=== PATIENT | female | born 1940 | race Caucasian/White ===

== ENCOUNTER 2022-04-13 14:07 | Emergency (ER) | payer MEDICARE, SELFPAY ==
--- NOTE | 2022-04-13 14:08 | ED.SKABFB ---
HPI - Skin/Abscess/Foreign Bdy General Chief complaint: Skin/Abscess/Foreign Body Stated complaint: tick bite rt arm Time Seen by Provider: 04/13/22 14:08 Source: patient Mode of arrival: ambulatory Limitations: no limitations History of Present Illness HPI narrative: Maryan is an 81-year-old female patient presenting to clinic today with complaints of a possible tick in her right upper arm. She reports she was out raking leaves yesterday and thinks she has been by tech. She got her tweezers out and tried to remove the tick on her own and was unsuccessful. She has redness and swelling around the tick bite. Related Data Home Medications Medication Instructions Recorded Confirmed amlodipine 5 mg tablet 5 mg PO DAILY 04/13/22 04/13/22 atenolol 25 mg tablet 25 mg PO DAILY 04/13/22 04/13/22 atorvastatin 40 mg tablet 40 mg PO DAILY 04/13/22 04/13/22 levothyroxine 50 mcg tablet 50 mcg PO DAILY 04/13/22 04/13/22 lisinopril 20 1 tablet PO DAILY 04/13/22 04/13/22 mg-hydrochlorothiazide 12.5 mg tablet Allergies Allergy/AdvReac Type Severity Reaction Status Date / Time No Known Allergies Allergy Verified 04/13/22 14:19 Review of Systems Review of Systems: Pertinent positives per HPI. Patient denies any fever, chills, rash, headache, visual changes, dizziness, cough, runny nose, sore throat, shortness of breath, chest pain, palpitations, nausea, vomiting, diarrhea, constipation, abdominal pain, or any urinary issues. PMFSH Comments At the time of my signature, I reviewed and agree with the nursing past medical, surgical, social, and family history. There is no relevant family history pertinent to the patient complaint. Exam Narrative: General: Well-developed, well nourished, in no apparent distress Head: Normocephalic, atraumatic. Cardio: Regular rate and rhythm, s1 and s2 normal, no murmur appreciated. Resp: Clear to auscultation bilaterally, no rhonchi, rales, wheezing or rubs. Integumentary: [place], warm, and dry, intact without lesion, red rash to the size of a half dollar with tick reminents in its in the center. Mild ear induration and erythema without discharge or abscess Course Course Emergency Course: Portions of this record may have been created with voice recognition software. Level of Care: Express Care Visit Vital Signs Vital signs: Vital Signs Temperature 36.6 C 04/13/22 14:17 Pulse Rate 68 04/13/22 14:17 Respiratory Rate 16 04/13/22 14:17 Blood Pressure 166/59 H 04/13/22 14:17 Pulse Oximetry 99 04/13/22 14:17 Temperature 36.6 C 04/13/22 14:17 Pulse Rate 68 04/13/22 14:17 Respiratory Rate 16 04/13/22 14:17 Blood Pressure 166/59 H 04/13/22 14:17 Pulse Oximetry 99 04/13/22 14:17 Vital signs reviewed Procedures Foreign Body Removal Foreign Body #1: Foreign Body Removal Date: 04/13/22 Foreign Body Removal Time: 14:25 Site: right Description of foreign body: other (Tick remnants) Technique: other (18 gauge needle) Confirmed by:: direct visualization Complications: none Post-procedure exam: awake, alert, normal BP, normal HR and normal O2 sat Neurovascular: no change from pre-procedure Foreign Body Removal Narrative: Verbal consent obtained for removal of tick remnants in the right upper arm. Risk and benefits explained to patient she voiced understanding of discharge instructions. The area was cleansed with alcohol and a 25 gauge needle was used to instill 1 mL of lidocaine without epi into the center of the wound/area of tick bite/attachment. Anesthesia was appropriate. An 18 gauge needle was then used to successfully remove the mandible of the tip from the right upper arm. Patient tolerated procedure very well MDM - Skin/Abscess/Foreign Bdy MDM Narrative Medical decision making narrative: At the time of visit patient is resting comfortably on exam table. Mandible of tick was removed from he
[2022-04-13 14:17] VITALS: BP 166/59; PULSE 68; RESP 16; TEMP 36.6; O2SAT 99
== END 2022-04-13 14:43 | disposition home or self-care (01) ==
PROVIDERS: Emergency Provider Nurse Practitioner Family; PCP Internal Medicine
DX: S40.861A Insect bite (nonvenomous) of right upper arm, initial encounter (principal); W57.XXXA Bitten or stung by nonvenomous insect and other nonvenomous arthropods, initial encounter
CPT/HCPCS: 99203; G0463

== ENCOUNTER 2024-01-19 20:08 | Inpatient (IN) | payer MEDICARE, SELFPAY ==
--- NOTE | ~2024-01-19 | US_ITS ---
EXAMINATION: US venous doppler [facility] DATE: 01/27/2024 11:55 INDICATION: Right lower limb pain, swelling and erythema TECHNIQUE: Grayscale ultrasound images without and with compression and Doppler ultrasound images of the bilateral lower extremity veins were obtained. COMPARISON: None. FINDINGS: The visualized portions of right common femoral vein, profunda (deep) femoral vein, femoral vein, pop liteal vein, posterior tibial veins, peroneal veins, gastrocnemius vein and greater saphenous vein ou tflow are patent. The visualized portions of left common femoral vein, profunda femoral vein, femoral vein, popliteal v ein, posterior tibial veins, peroneal veins, gastrocnemius vein and greater saphenous vein outflow ar e patent. IMPRESSION: 1. No deep venous thrombosis in either lower limb. Reviewed, dictated and finalized at location A.
--- NOTE | ~2024-01-19 | CT_ITS ---
EXAMINATION: CTA abdomen pelvis DATE: 01/28/2024 12:04 INDICATION: Femoral artery stenosis TECHNIQUE: Computed tomographic angiography (CTA) of the abdomen and pelvis was performed with 100 mL Omnipaque-350 intravenous contrast. Additional 3D reconstructions utilizing rotating maximum intensi ty projection (MIP) were performed. Automated exposure control and iterative reconstruction technique were employed. The dose-length product was 666.11 mGy-cm. COMPARISON: CT abdomen pelvis dated 06/14/2017 FINDINGS: Mild emphysema minimal atelectasis at the bilateral lower lungs. Heart size is normal. No pericardial or pleural effusion. Multiple cysts in the right hepatic lobe the largest measuring 7.4 cm. Gradient of dependently layering sludge in the normal gallbladder. Spleen, left kidney and bilateral adrenal glands are normal. 2.0 cm right renal cyst. There is a new simple appearing 2.4 cm cyst arising from the body the pancreas without evident solid soft tissue component. 1.6 cm right ovarian follicle. The left ovary, uterus and bladder are normal. There are few scattered colonic diverticula without adjacent from trace stranding to suggest diverticulitis. Small bowel and appendix are normal. No free intraperitoneal gas or fluid. No pathologically enlarged abdominal or p elvic lymphadenopathy. There is calcified atherosclerosis without hemodynamically significant stenosi s of the normal caliber aorta and many of the other arteries including the common, deep and superfici al femoral arteries at the bilateral proximal thighs. Severe lumbar and lower thoracic spondylosis. IMPRESSION: 1. Mild scattered nonhemodynamically significant atherosclerotic plaque in the normal caliber abdomin al aorta and several remaining arteries in the abdomen, pelvis and proximal thighs. 2. 2.4 cm cystic lesion at the body the pancreas. The differential diagnosis includes pseudocyst, int raductal papillary mucinous neoplasm (IPMN), mucinous cystic neoplasm (MCN), and the less common sero us cystadenoma and neuroendocrine tumor. Correlate for history of pancreatitis. Recommend six-month f ollow-up pre and postcontrast MRI. Reviewed, dictated and finalized at location A. IMPRESSION: 1. Mild scattered nonhemodynamically significant atherosclerotic plaque in the normal caliber abdominal aorta and several remaining arteries in the abdomen, p samuel and proximal thighs. 2. 2.4 cm cystic lesion at the body the pancreas. The differential diagnosis in cludes pseudocyst, intraductal papillary mucinous neoplasm (IPMN), mucinous cys tic neoplasm (MCN), and the less common serous cystadenoma and neuroendocrine t umor. Correlate for history of pancreatitis. Recommend six-month follow-up pre and postcontrast MRI.
--- NOTE | ~2024-01-19 | CT_ITS ---
Procedure: CT LE RT w con Ordering provider: Michaela Moreno NP History: . Redness and swelling . Comparison: 8 Technique: Thin slice axial CT of the No IV contrast was given. Sagittal and coronal reformatted imag es were also obtained and reviewed. Findings: BONES: No definite abnormality. 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 SOFT TISSUES: Narrowing of 75-85 % is seen in the distal SFA. Atherosclerotic changes are also noted. Edema is seen in the subcutaneous tissues below the knee. Collateral vessels are seen.. 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 Further evaluation advised. Edema in the subcutaneous tissues below the knee more prominent on the dorsum of the foot. Reviewed, dictated and finalized at location A. 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 Further evaluation advised. Edema in the subcutaneous tissues below the knee more prominent on the dorsum o f the foot.
[2024-01-19 20:09] VITALS: BP 131/47; PULSE 79; RESP 17; TEMP 36.8; O2SAT 99
--- NOTE | 2024-01-19 22:28 | ED.LOWEXIN ---
HPI - Extremity Injury (Lower) General Chief Complaint: Extremity Injury, Lower <PACO Rizo Last Filed: 01/22/24 18:28> Stated Complaint: Right leg pain <PACO Rizo Last Filed: 01/22/24 18:28> Time Seen by Provider: 01/19/24 22:15 <PACO Rizo Last Filed: 01/22/24 18:28> Source: patient <PACO Rizo Last Filed: 01/22/24 18:28> Mode of arrival: ambulatory <PACO Rizo Last Filed: 01/22/24 18:28> Limitations: no limitations <PACO Rizo Last Filed: 01/22/24 18:28> History of Present Illness HPI Narrative: This is a 83 year old female that presents to the ER for Right lower extremity redness and swelling. Reports she sustained a scratch from a dog leash on Monday. Two days ago the area started to become red and swollen. She has had some drainage from the area. The redness has spread down to her foot and up to her thigh. She went to the urgent care and was prompted to be seen in the ER. Denies fevers. <PACO Rizo Last Filed: 01/22/24 18:28> Related Data Home Medications: Home Medications Medication Instructions Recorded Confirmed amlodipine 5 mg tablet 5 mg PO HS 04/13/22 01/20/24 atenolol 25 mg tablet 25 mg PO HS 04/13/22 01/20/24 atorvastatin 40 mg tablet 40 mg PO HS 04/13/22 01/20/24 levothyroxine 50 mcg tablet 50 mcg PO DAILY 04/13/22 01/20/24 lisinopril 20 1 tablet PO DAILY 04/13/22 01/20/24 mg-hydrochlorothiazide 12.5 mg tablet <PACO Rizo Last Filed: 01/22/24 18:28> Allergies/Adverse Reactions: Allergies Allergy/AdvReac Type Severity Reaction Status Date / Time No Known Allergies Allergy Verified 01/19/24 20:16 <PACO Rizo Last Filed: 01/22/24 18:28> Review of Systems Review of Systems: CONSTITUTIONAL: Denies fever SKIN: Reports redness and swelling <Heidi Nieves PA-C - Last Filed: 01/22/24 18:28> All systems reviewed & are unremarkable except as noted in HPI and below <Heidi Nieves PA-C - Last Filed: 01/22/24 18:28> PMFSH Past Medical History Medical History: Medical History (Updated 01/22/24 @ 14:15 by MAGALYS Frnacois) History of hyperlipidemia History of hypertension History of hypothyroidism <Heidi Nieves PA-C - Last Filed: 01/22/24 18:28> Social History Social History: Social History (Updated 01/19/24 @ 22:33 by Heidi Nieves PA-C) Smoking status: Former smoker Alcohol intake: current Drinks per week: 1 Substance use: never Do You Feel Safe in your Home?: Yes Lack of Transportation: YES Lack of Food: Never True Current Housing: I Have Housing Concerned About Future Housing: No Difficulty Paying Gas/Electric Bills: No Difficulty Paying for Meds: No Currently Unemployed: No Education: Master's Degree or Higher Difficulty w/ Childcare or Family Care: No Spiritual care concerns: No <Heidi Nieves PA-C - Last Filed: 01/22/24 18:28> Exam Narrative: GENERAL: Well-appearing, well-nourished, and in no acute distress. HEAD: Normocephalic, atraumatic. EYES: EOMI. CHEST: No respiratory distress. HEART: Regular rate EXTREMITIES: Normal range of motion. Edema and erythema extending from a small superficial skin tear to the right inner lower leg down into the foot and with lymphangitic streaking up to the proximal thigh. Normal DP pulse SKIN: Warm, dry, no rash. NEURO: No focal deficits. Alert and oriented x3. PSYCH: Normal mood and affect <Heidi Nieves PA-C - Last Filed: 01/22/24 18:28> Course Course Emergency Course: Patient updated on workup and need for admission <Heidi Nieves PA-C - Last Filed: 01/22/24 18:28> TAX COLLECTOR/PA Physician Supervision I agree with midlevel documentation; I performed the medical decision making component of this evaluation. Patient here with spreading cellulitis; BP has been soft, but fluid
[2024-01-19 23:34] LABS: Basophils Absolute Auto 0.1 K/mm3 (0.0-0.1); Basophils Percent Auto 0.4 % (0.2-1.2); Eosinophils Percent Auto 0.2 % (0-4.4); Hematocrit 34.4 % (37.0-47.0); Immature Granulocyte Absolute 0.05 K/mm3 (0.00-0.031); Immature Granulocyte Percent A 0.4 % (0-0.5); Lymphocytes Absolute Auto 0.92 K/mm3 (0.9-3.2); Lymphocytes Percent Auto 8.2 % (18.3-44.2); Mean Corpuscular HGB Conc 34.9 g/dl (32-36); Mean Corpuscular Hemoglobin 32.3 pg (26-34); Mean Corpuscular Volume 92.7 fl (80-100); Mean Platelet Volume 9.8 fl (7.4-10.4); Monocytes Percent Auto 8.5 % (2.6-8.5); Neutrophils Absolute Auto 9.2 K/mm3 (1.3-6.7); Neutrophils Percent Auto 82.3 % (45.5-73.1); Platelet Count Result 234 k/mm3 (150-375); Red Blood Count 3.71 M/mm3 (4.2-5.4); Red Cell Distribution Width 13.1 % (11.5-14.5); White Blood Count 11.2 K/mm3 (4.5-10.0)
[2024-01-19 23:49] LABS: Lactic Acid Reflex 1.1 mmol/L (0.7-2.0)
[2024-01-20] VITALS (14 sets, daily range): BP systolic 103–144; BP diastolic 41–94; PULSE 54–86; RESP 11–18; TEMP 36.5–38.9; O2SAT 95–100; BMI 33.2
[2024-01-20 00:09] LABS: Anion Gap 10 mmol/L (4-12); Blood Urea Nitrogen 29 mg/dL (7-17); CRP 19.4 mg/dL (<1.0); Calcium 8.7 mg/dL (8.4-10.2); Carbon Dioxide 28 mmol/L (22-30); Chloride 92 mmol/L (98-107); Estimated CRCL calculation 24 ml/min; Estimated Glomerular Filt Rate 36; Glucose 105 mg/dL (65-110); Potassium 2.9 mmol/L (3.4-5.0); Sodium 130 mmol/L (137-145)
[2024-01-20] MEDS: ACETAMINOPHEN 500 MG TABLET 1000 MG PO (00:16)
[2024-01-20] MEDS: VANCOMYCIN 1,500 MG/NS 500 ML 1,500 MG/500 ML BAG 250 MG IVPB (01:08)
[2024-01-20 01:09] LABS: Erythrocyte Sedimentation Rate 85 mm/hr (0-20)
[2024-01-20] MEDS: POTASSIUM CHLORIDE 20 MEQ ER TABLET 40 MEQ PO ×4 (01:13→17:01)
[2024-01-20] MEDS: SODIUM CHLORIDE 0.9% IV 1,000 ML 999 ML IV CONT ×2 (01:14→02:56)
[2024-01-20] MEDS: CEFEPIME 2 GM/NS 50 ML 2 GM/50 ML BAG IVPB ×3 (03:36→20:47)
[2024-01-20] MEDS: LACTATED RINGERS 1,000 ML 150 ML IV CONT (04:20)
--- NOTE | 2024-01-20 06:57 | ADMGEN ---
This patient, Tequila Rubio, was admitted to [facility] Surg Room 314-02. Patient/family oriented to hospital policies and general routines including ID bracelet, bed and alarms, visiting hours, pain management, procedures, bathroom and other care routines, personal items, smoking policy, room service/diet, and visiting hours. Information on how to activate the Rapid Response Team has been discussed. Patient/Family are encouraged to report perceived risks to care and to ask questions if they do not understand what they are told or what they should do.
[2024-01-20 09:02] LABS: Basophils Percent Auto 0.2 % (0.2-1.2); Eosinophils Percent Auto 0.3 % (0-4.4); Hematocrit 33.1 % (37.0-47.0); Hemoglobin 11.3 g/dL (12.0-15.0); Immature Granulocyte Absolute 0.03 K/mm3 (0.00-0.031); Immature Granulocyte Percent A 0.3 % (0-0.5); Lymphocytes Absolute Auto 0.64 K/mm3 (0.9-3.2); Mean Corpuscular HGB Conc 34.1 g/dl (32-36); Mean Corpuscular Hemoglobin 32.1 pg (26-34); Mean Platelet Volume 10.5 fl (7.4-10.4); Monocytes Absolute Auto 1.1 K/mm3 (0.1-0.6); Monocytes Percent Auto 10.1 % (2.6-8.5); Neutrophils Absolute Auto 8.8 K/mm3 (1.3-6.7); Neutrophils Percent Auto 83.1 % (45.5-73.1); Platelet Count Result 204 k/mm3 (150-375); Red Blood Count 3.52 M/mm3 (4.2-5.4); Red Cell Distribution Width 13.2 % (11.5-14.5); White Blood Count 10.6 K/mm3 (4.5-10.0)
[2024-01-20 09:21] LABS: Alanine Aminotransferase 16 U/L (6-35); Albumin Level 3.1 g/dL (3.5-5.1); Alkaline Phosphatase 65 U/L (38-126); Anion Gap 10 mmol/L (4-12); Aspartate Amino Transferase 26 U/L (14-36); Bilirubin,Total 0.8 mg/dL (0.2-1.3); Blood Urea Nitrogen 24 mg/dL (7-17); Calcium 7.6 mg/dL (8.4-10.2); Carbon Dioxide 24 mmol/L (22-30); Chloride 101 mmol/L (98-107); Estimated CRCL calculation 33 ml/min; Estimated Glomerular Filt Rate 53; Glucose 107 mg/dL (65-110); Magnesium 1.9 mg/dL (1.6-2.3); Potassium 2.8 mmol/L (3.4-5.0); Sodium 135 mmol/L (137-145)
[2024-01-20] MEDS: ENOXAPARIN 30 MG/0.3 ML SYRINGE SUB-Q (09:43)
--- NOTE | 2024-01-20 12:26 | PM.IMPN ---
Progress Note: A&P Assessment and Plan (1) Cellulitis: Qualifiers: Laterality: right Site of cellulitis: extremity Site of cellulitis of extremity: lower extremity Qualified Code(s): L03.115 - Cellulitis of right lower limb Code(s): L03.90 - Cellulitis, unspecified Status: Acute Assessment and Plan: 01/20/24: Right lower extremity erythema, swelling, warmth with notable skin tear on calf which is open to air Continue cefepime, Flagyl, vancomycin White blood cell count initially 11.2, now down to 10.6 Lactic acid was 1.1 on admission, C reactive protein 19.4 Blood and wound cultures are pending (2) Hypertension: Code(s): I10 - Essential (primary) hypertension Status: Acute Assessment and Plan: 01/20/24: Blood pressure 115/50 to 121/94 Continue amlodipine Will hold lisinopril/hydrochlorothiazide due to LUCY (3) Hyperlipidemia: Code(s): E78.5 - Hyperlipidemia, unspecified Status: Acute Assessment and Plan: 01/20/24: Continue atorvastatin (4) Hypothyroidism: Code(s): E03.9 - Hypothyroidism, unspecified Status: Acute Assessment and Plan: 01/20/24: Continue Synthroid (5) Acute kidney injury: Code(s): N17.9 - Acute kidney failure, unspecified Status: Acute Assessment and Plan: 01/20/24: Creatinine 1.4 Baseline is normal Continue to trend (6) Hypokalemia: Code(s): E87.6 - Hypokalemia Status: Acute Assessment and Plan: 01/20/24: Potassium 2.9 initially now down to 2.8 Will give 40 mEq of potassium now and additional 40 mEq of potassium around 4:00 p.m. today Continue to trend labs Time Spent With Patient Time with patient: 25 - 35 minutes Subjective Date/time seen: 01/20/24 12:26 Interval history: This is an 83-year-old female presented to the hospital today with cellulitis changes to right lower extremity. Labs showed a white blood cell count of 11.2 sodium 130, potassium 2 point, chloride 92, creatinine 1.4 EGFR 36, C reactive protein 19.4. Wound and blood cultures were obtained and are pending. Patient was started on vancomycin, cefepime, Flagyl and was given IV fluids while in the ED. 01/20/24: She denies any fever, chills, nausea, vomiting, diarrhea, abdominal, chest, shortness a breath. She reports swelling and pain to right lower extremity. She states that this has been going on since Monday of this week. She feels that the skin tear on her handy was from a dog collar/leash. She rigidly presented to the urgent care however she was told to come straight to the emergency room for further workup. Review of Systems Review of Systems: All systems reviewed & are unremarkable except as noted in HPI and below Constitutional: Constitutional: Reports as per HPI and Reports no additional constitutional complaints Eyes: Eyes: Reports as per HPI and Reports no additional eye complaints ENT: Reports system reviewed and no additional complaints, except as documented and Reports as per HPI Cardiovascular: Cardiovascular: Reports as per HPI and Reports no additional cardiovascular complaints Respiratory: Respiratory: Reports as per HPI and Reports no additional respiratory complaints Gastrointestinal: Gastrointestinal: Reports as per HPI and Reports no additional gastrointestinal complaints Genitourinary: Genitourinary: Reports no additional female genitourinary complaints and Reports as per HPI Musculoskeletal: Musculoskeletal: Reports no additional musculoskeletal complaints and Reports as per HPI Integumentary/Breasts: Skin/Breast: Reports system reviewed and no additional complaints, except as docu and Reports as per HPI Neurologic: Reports system reviewed and no additional complaints, except as documented and Reports as per HPI Psychiatric: Psychiatric: Reports no additional psychiatric complaints and Reports as per HPI Exam Narrative: General: In no acute distress, wel
[2024-01-20] MEDS: metroNIDAZOLE 500 MG TABLET PO ×2 (13:21→20:38)
[2024-01-20] MEDS: ACETAMINOPHEN 325 MG TABLET 650 MG PO (14:45)
[2024-01-20] MEDS: amLODIPine BESYLATE 5 MG TABLET PO (20:38)
[2024-01-20] MEDS: atenoloL 25 MG TABLET PO (20:39)
[2024-01-20] MEDS: ATORVASTATIN 40 MG TABLET PO (20:39)
--- NOTE | 2024-01-20 20:54 | PM.IMHP ---
H&P: HPI History of Present Illness Date/Time: 01/20/24 20:54 Chief Complaint: RLE redness Narrative: This is an 83-year-old female with past medical history significant for hypertension, dyslipidemia, hypothyroidism patient presents to the emergency room due to right lower extremity redness warmth open a skin tear this has been going on for the last 4-5 days patient went to [facility] and she was told to come to the emergency room. Patient complains of chills, decreased appetite generalized weakness muscle aches and pains. Review of Systems Review of Systems: RLE redness, warmth, tenderness, skin tear Constitutional: Constitutional: Reports chills Eyes: Eyes: Denies change in vision ENT: Denies dysphagia and Denies odynophagia Cardiovascular: Cardiovascular: Denies chest pain Respiratory: Respiratory: Denies chest congestion and Denies cough Gastrointestinal: Gastrointestinal: Denies abdominal pain, Denies diarrhea, Denies nausea and Denies vomiting Genitourinary: Genitourinary: Denies dysuria Musculoskeletal: Musculoskeletal: Reports myalgias Integumentary/Breasts: Skin/Breast: Reports erythema Neurologic: Denies focal weakness and Denies Sensory deficit (Neuro) Psychiatric: Psychiatric: Reports no additional psychiatric complaints and Reports as per HPI Endocrine: Endocrine: Denies heat intolerance, Denies polyphagia, Denies polydipsia, Denies polyuria and Denies palpitations Hematologic/Lymphatic: Hematologic/Lymphatic: Reports no additional hematologic/lymphatic complaints and Reports as per HPI Allergic/Immunologic: Allergic/Immunologic: Reports no additional allergic/immunologic complaints and Reports as per HPI [facility] Past Medical History Medical History (Updated 01/20/24 @ 12:34 by Umm Little APRN) History of hyperlipidemia History of hypertension History of hypothyroidism Social History Social History (Updated 01/19/24 @ 22:33 by Heidi Nieves PA-C) Smoking status: Former smoker Alcohol intake: current Drinks per week: 1 Substance use: never Do You Feel Safe in your Home?: Yes Lack of Transportation: YES Lack of Food: Never True Current Housing: I Have Housing Concerned About Future Housing: No Difficulty Paying Gas/Electric Bills: No Difficulty Paying for Meds: No Currently Unemployed: No Education: Master's Degree or Higher Difficulty w/ Childcare or Family Care: No Spiritual care concerns: No Meds Home Medications and Allergies Home Medications Medication Instructions Recorded Confirmed Type amlodipine 5 mg tablet 5 mg PO HS 04/13/22 01/20/24 History atenolol 25 mg tablet 25 mg PO HS 04/13/22 01/20/24 History atorvastatin 40 mg tablet 40 mg PO HS 04/13/22 01/20/24 History levothyroxine 50 mcg tablet 50 mcg PO DAILY 04/13/22 01/20/24 History lisinopril 20 1 tablet PO DAILY 04/13/22 01/20/24 History mg-hydrochlorothiazide 12.5 mg tablet Allergies Allergy/AdvReac Type Severity Reaction Status Date / Time No Known Allergies Allergy Verified 01/19/24 20:16 Vital Signs Vital Signs - 24 hr 01/20/24 00:07 01/20/24 02:20 01/20/24 03:21 Temperature 98.2 F Pulse Rate 64 55 L 54 L Respiratory Rate 14 11 L 16 Blood Pressure 134/51 L 114/51 L 103/41 L Pulse Oximetry 100 97 95 Oxygen Delivery Fraction of Inspired Oxygen 01/20/24 04:27 01/20/24 06:27 01/20/24 06:46 Temperature 97.7 F Pulse Rate 54 L 55 L 55 L Respiratory Rate 15 18 18 Blood Pressure 121/94 H 115/50 L 122/47 L Pulse Oximetry 98 98 99 Oxygen Delivery Fraction of Inspired Oxygen 01/20/24 08:09 01/20/24 09:40 01/20/24 08:00 Temperature Pulse Rate 60 Respiratory Rate Blood Pressure Pulse Oximetry 98 Oxygen Delivery Room Air Room Air Fraction of Inspired Oxygen 21 01/20/24 12:00 01/20/24 14:41 01/20/24 14:45 Temperature 102.1 F H Pulse Rate 71 Respiratory Rate Blood Pressure Pulse Oxim
[2024-01-21 05:04] VITALS: BP 133/48; PULSE 67; RESP 16; TEMP 37.6; O2SAT 99
[2024-01-21] MEDS: metroNIDAZOLE 500 MG TABLET PO ×3 (05:49→21:29)
[2024-01-21 06:12] LABS: Basophils Percent Auto 0.3 % (0.2-1.2); Eosinophils Percent Auto 0.2 % (0-4.4); Hematocrit 33.1 % (37.0-47.0); Hemoglobin 11.1 g/dL (12.0-15.0); Immature Granulocyte Absolute 0.07 K/mm3 (0.00-0.031); Immature Granulocyte Percent A 0.5 % (0-0.5); Lymphocytes Absolute Auto 0.74 K/mm3 (0.9-3.2); Lymphocytes Percent Auto 5.4 % (18.3-44.2); Mean Corpuscular HGB Conc 33.5 g/dl (32-36); Mean Corpuscular Hemoglobin 31.7 pg (26-34); Mean Corpuscular Volume 94.6 fl (80-100); Mean Platelet Volume 10.2 fl (7.4-10.4); Monocytes Absolute Auto 1.4 K/mm3 (0.1-0.6); Monocytes Percent Auto 10.3 % (2.6-8.5); Neutrophils Absolute Auto 11.4 K/mm3 (1.3-6.7); Neutrophils Percent Auto 83.3 % (45.5-73.1); Platelet Count Result 259 k/mm3 (150-375); Red Cell Distribution Width 13.2 % (11.5-14.5); White Blood Count 13.7 K/mm3 (4.5-10.0)
[2024-01-21 06:28] LABS: Alanine Aminotransferase 20 U/L (6-35); Albumin Level 3.4 g/dL (3.5-5.1); Alkaline Phosphatase 71 U/L (38-126); Anion Gap 8 mmol/L (4-12); Aspartate Amino Transferase 33 U/L (14-36); Bilirubin,Total 0.6 mg/dL (0.2-1.3); Blood Urea Nitrogen 17 mg/dL (7-17); Calcium 8.4 mg/dL (8.4-10.2); Carbon Dioxide 26 mmol/L (22-30); Chloride 100 mmol/L (98-107); Estimated CRCL calculation 37 ml/min; Estimated Glomerular Filt Rate 60; Glucose 110 mg/dL (65-110); Potassium 3.6 mmol/L (3.4-5.0); Sodium 134 mmol/L (137-145)
[2024-01-21] MEDS: CEFEPIME 2 GM/NS 50 ML 2 GM/50 ML BAG IVPB ×2 (08:12→21:29)
[2024-01-21] MEDS: ACETAMINOPHEN 325 MG TABLET 650 MG PO ×3 (08:12→16:20)
[2024-01-21] MEDS: ENOXAPARIN 40 MG/0.4 ML SYRINGE SUB-Q (08:12)
[2024-01-21] MEDS: LEVOTHYROXINE SODIUM 50 MCG TABLET PO (08:12)
--- NOTE | 2024-01-21 08:22 | PM.IMPN ---
Progress Note: A&P Assessment and Plan (1) Cellulitis: Qualifiers: Laterality: right Site of cellulitis: extremity Site of cellulitis of extremity: lower extremity Qualified Code(s): L03.115 - Cellulitis of right lower limb Code(s): L03.90 - Cellulitis, unspecified Status: Acute Assessment and Plan: admit to regular medical floor patient started on vancomycin and cefepime and Flagyl cultures in progress - margins are marked for monitoring (2) Hypokalemia: Code(s): E87.6 - Hypokalemia Status: Acute Assessment and Plan: replace as needed monitor daily labs (3) Acute kidney injury: Code(s): N17.9 - Acute kidney failure, unspecified Status: Acute Assessment and Plan: likely prerenal azotemia holding lisinopril and hydrochlorothiazide 01/20- improved- monitor (4) Hypothyroidism: Code(s): E03.9 - Hypothyroidism, unspecified Status: Acute Assessment and Plan: resume home meds (5) Hyperlipidemia: Code(s): E78.5 - Hyperlipidemia, unspecified Status: Acute Assessment and Plan: continue statin (6) Hypertension: Code(s): I10 - Essential (primary) hypertension Status: Acute Assessment and Plan: continue amlodipine - review and stable- holding lisinopril and hhctz fpr now Time Spent With Patient Time with patient: Greater than 35 minutes Subjective Date/time seen: 01/21/24 08:22 Interval history: This is an 83-year-old female presented to the hospital today with cellulitis changes to right lower extremity. Labs showed a white blood cell count of 11.2 sodium 130, potassium 2 point, chloride 92, creatinine 1.4 EGFR 36, C reactive protein 19.4. Wound and blood cultures were obtained and are pending. Patient was started on vancomycin, cefepime, Flagyl and was given IV fluids while in the ED. 01/20/24: She denies any fever, chills, nausea, vomiting, diarrhea, abdominal, chest, shortness a breath. She reports swelling and pain to right lower extremity. She states that this has been going on since Monday of this week. She feels that the skin tear on her handy was from a dog collar/leash. She rigidly presented to the urgent care however she was told to come straight to the emergency room for further workup. 01/20- pt is seen and examined today. Wound care consulted, Pt is on cefepime, flagyl and vanc. wound and blood cultures pending. Erythema and swelling marked at the bedside for monitoring. Granddaughter at the bedside- all questions answered. Review of Systems Review of Systems: RLE redness, warmth, tenderness, skin tear All systems reviewed & are unremarkable except as noted in HPI and below Constitutional: Constitutional: Reports as per HPI, Reports no additional constitutional complaints and Reports chills Eyes: Eyes: Reports as per HPI, Reports no additional eye complaints and Denies change in vision ENT: Reports system reviewed and no additional complaints, except as documented, Reports as per HPI, Denies dysphagia and Denies odynophagia Cardiovascular: Cardiovascular: Reports as per HPI, Reports no additional cardiovascular complaints, Denies chest pain and Denies palpitations Respiratory: Respiratory: Reports as per HPI, Reports no additional respiratory complaints, Denies chest congestion and Denies cough Gastrointestinal: Gastrointestinal: Reports as per HPI, Reports no additional gastrointestinal complaints, Denies abdominal pain, Denies dysphagia, Denies diarrhea, Denies nausea, Denies odynophagia and Denies vomiting Genitourinary: Genitourinary: Reports no additional female genitourinary complaints, Reports as per HPI and Denies dysuria Musculoskeletal: Musculoskeletal: Reports no additional musculoskeletal complaints, Reports as per HPI and Reports myalgias Integumentary/Breasts: Skin/Breast: Reports system reviewed and no additional complaints, except as docu, Reports as per
[2024-01-21] MEDS: SACCHAROMYCES BOULARDII 250 MG CAPSULE PO ×2 (12:01→16:20)
[2024-01-21] MEDS: VANCOMYCIN 1,500 MG/NS 500 ML 1,500 MG/500 ML BAG 250 MG IVPB (14:45)
[2024-01-21 15:19] VITALS: BP 133/48; PULSE 58; RESP 20; TEMP 36.9; O2SAT 100
[2024-01-21] MEDS: ATORVASTATIN 40 MG TABLET PO (21:20)
[2024-01-21] MEDS: amLODIPine BESYLATE 5 MG TABLET PO (21:20)
[2024-01-21 21:21] VITALS: PULSE 68
[2024-01-21] MEDS: atenoloL 25 MG TABLET PO (21:21)
[2024-01-21 22:00] VITALS: BP 130/50; PULSE 65; RESP 18; TEMP 36.6; O2SAT 97
[2024-01-22] MEDS: SODIUM CHLORIDE 0.9% IV 1,000 ML 100 ML IV CONT (04:03)
[2024-01-22 05:37] VITALS: BP 135/53; PULSE 60; RESP 18; TEMP 36.8; O2SAT 98
[2024-01-22] MEDS: LEVOTHYROXINE SODIUM 50 MCG TABLET PO (05:40)
[2024-01-22] MEDS: metroNIDAZOLE 500 MG TABLET PO (05:40)
[2024-01-22 06:15] LABS: Basophils Absolute Auto 0.1 K/mm3 (0.0-0.1); Basophils Percent Auto 0.6 % (0.2-1.2); Eosinophils Absolute Auto 0.1 K/mm3 (0-0.3); Eosinophils Percent Auto 0.9 % (0-4.4); Hematocrit 32.9 % (37.0-47.0); Hemoglobin 11.2 g/dL (12.0-15.0); Immature Granulocyte Percent A 0.8 % (0-0.5); Lymphocytes Absolute Auto 1.16 K/mm3 (0.9-3.2); Lymphocytes Percent Auto 8.9 % (18.3-44.2); Mean Platelet Volume 9.9 fl (7.4-10.4); Monocytes Absolute Auto 1.2 K/mm3 (0.1-0.6); Monocytes Percent Auto 9.2 % (2.6-8.5); Neutrophils Absolute Auto 10.4 K/mm3 (1.3-6.7); Neutrophils Percent Auto 79.6 % (45.5-73.1); Platelet Count Result 265 k/mm3 (150-375); Red Cell Distribution Width 13.4 % (11.5-14.5); White Blood Count 13.1 K/mm3 (4.5-10.0)
[2024-01-22 06:33] LABS: Alanine Aminotransferase 20 U/L (6-35); Albumin Level 3.3 g/dL (3.5-5.1); Alkaline Phosphatase 71 U/L (38-126); Anion Gap 9 mmol/L (4-12); Aspartate Amino Transferase 35 U/L (14-36); Bilirubin,Total 0.5 mg/dL (0.2-1.3); Blood Urea Nitrogen 12 mg/dL (7-17); Calcium 8.2 mg/dL (8.4-10.2); Carbon Dioxide 23 mmol/L (22-30); Chloride 104 mmol/L (98-107); Estimated CRCL calculation 41 ml/min; Estimated Glomerular Filt Rate > 60; Glucose 102 mg/dL (65-110); Potassium 3.4 mmol/L (3.4-5.0); Sodium 136 mmol/L (137-145)
[2024-01-22] MEDS: CEFEPIME 2 GM/NS 50 ML 2 GM/50 ML BAG IVPB (08:15)
[2024-01-22] MEDS: ENOXAPARIN 40 MG/0.4 ML SYRINGE SUB-Q (08:16)
[2024-01-22] MEDS: SACCHAROMYCES BOULARDII 250 MG CAPSULE PO ×3 (08:16→16:42)
--- NOTE | 2024-01-22 14:02 | PM.IMPN ---
Progress Note: A&P Assessment and Plan (1) Cellulitis: Qualifiers: Laterality: right Site of cellulitis: extremity Site of cellulitis of extremity: lower extremity Qualified Code(s): L03.115 - Cellulitis of right lower limb Code(s): L03.90 - Cellulitis, unspecified Status: Acute Assessment and Plan: admit to regular medical floor patient started on vancomycin and cefepime and Flagyl cultures in progress - margins are marked for monitoring 01/22/24: Cultures from wound grew out Group G Strep. Change Abx to oral Linezolid and Augmentin after consulting with ID pharmacist. Blood cultures are preliminarily negative to this point. WBC's are stable at 13.1. Continue to monitor and adjust treatment as necessary. (2) Hypokalemia: Code(s): E87.6 - Hypokalemia Status: Resolved Assessment and Plan: 01/22/24: Resolved. Today's Potassium is 3.4. Monitor with Daily Labs. (3) Acute kidney injury: Code(s): N17.9 - Acute kidney failure, unspecified Status: Acute Assessment and Plan: likely prerenal azotemia holding lisinopril and hydrochlorothiazide 01/20- improved- monitor 01/22/24: Resolved. Renal function has returned to normal at 0.80/12 with GFR of >60.0 Will restart Lisinopril and HCTZ. Continue to monitor with daily labs. (4) Hypothyroidism: Code(s): E03.9 - Hypothyroidism, unspecified Status: Chronic Assessment and Plan: 01/22/24: Continue home dose of Synthroid. (5) Hyperlipidemia: Code(s): E78.5 - Hyperlipidemia, unspecified Status: Chronic Assessment and Plan: 01/22/24: Continue statin therapy (6) Hypertension: Code(s): I10 - Essential (primary) hypertension Status: Acute Assessment and Plan: continue amlodipine - review and stable- holding lisinopril and hhctz fpr now 01/22/24: Restart home doses of Lisinopril and HCTZ as pt's renal function has returned to normal. Time Spent With Patient Time with patient: Greater than 35 minutes Subjective Date/time seen: 01/22/24 14:02 Interval history: This 83 year old female pt was examined at the bedside today in interval assessment after being admitted to the hospital for Cellulitis of the RLE. She has been receiving abx of Vancomycin, Cefepime and flagyl. Blood cultures to this point have been negative for any growth, however, the wound culture grew out Group G Streptococcus. Abx therapy today has been narrowed to Oral Linezolid 600 mg q12 HRS and Augmentin 875 mg po BID. Pt has no other acute complaints, symptoms or concerns to report today. Her VSS, and family at the bedside were updated on her POC. Review of Systems Review of Systems: All systems reviewed & are unremarkable except as noted in HPI and below Exam Narrative: Constitutional: Pleasant, elderly female pt lying supine in bed at this time. She does not appear to be in any acute distress. HEENT: Head is normocephalic and atraumatic. MMM, clear oropharynx EYES: PERRLA, no conjunctivitis and no drainage. NECK: Supple and FROM, no LN RESPIRATORY: CTAB in all manzo CARDIO: RRR, S1 and S2 present without any M,R,G,H GI: Soft, NT, BS present x4, no rebound, guarding. SKIN: RLE with erythema and edema from the right ankle up to the knee. There is a scabbed over area on the medial side of the lower leg without any drainage surrounding. : Deferred NEURO: Non-focal exam, Alert and oriented x3 EXTREMITIES: RLE with edema, but full and Active ROM. Cellulits noted to the RLE. Objective Data Vital Signs Vital Signs: Vital Signs - 24 hr 01/21/24 15:19 01/21/24 21:21 01/21/24 22:00 Temperature 98.4 F 97.8 F Pulse Rate 58 L 68 65 Respiratory Rate 20 18 Blood Pressure 133/48 L 130/50 L Pulse Oximetry 100 97 Oxygen Delivery 01/22/24 05:37 01/22/24 08:10 Temperature 98.3 F Pulse Rate 60 Respiratory Rate 18 Blood Pressure 135/53 L Pulse Oximet
[2024-01-22 16:00] VITALS: BP 143/54; PULSE 63; RESP 17; TEMP 36.8; O2SAT 100
[2024-01-22 20:45] VITALS: BP 157/59; PULSE 66; RESP 18; TEMP 36.4; O2SAT 98
[2024-01-22 20:53] VITALS: PULSE 63
[2024-01-22] MEDS: ATORVASTATIN 40 MG TABLET PO (20:53)
[2024-01-22] MEDS: AMOXICILLIN/CLAVULANATE K 875-125 MG TAB 1 TABLET PO (20:53)
[2024-01-22] MEDS: LINEZOLID 600 MG TABLET PO (20:53)
[2024-01-22] MEDS: atenoloL 25 MG TABLET PO (20:53)
[2024-01-22] MEDS: amLODIPine BESYLATE 5 MG TABLET PO (20:53)
[2024-01-23 04:45] VITALS: BP 132/69; PULSE 56; RESP 18; TEMP 36.1; O2SAT 99
[2024-01-23] MEDS: LEVOTHYROXINE SODIUM 50 MCG TABLET PO (06:12)
[2024-01-23 07:05] LABS: Basophils Absolute Auto 0.1 K/mm3 (0.0-0.1); Basophils Percent Auto 0.5 % (0.2-1.2); Eosinophils Absolute Auto 0.2 K/mm3 (0-0.3); Eosinophils Percent Auto 1.3 % (0-4.4); Hematocrit 31.4 % (37.0-47.0); Hemoglobin 10.7 g/dL (12.0-15.0); Immature Granulocyte Absolute 0.15 K/mm3 (0.00-0.031); Immature Granulocyte Percent A 1.3 % (0-0.5); Lymphocytes Percent Auto 10.9 % (18.3-44.2); Mean Corpuscular HGB Conc 34.1 g/dl (32-36); Mean Corpuscular Hemoglobin 31.7 pg (26-34); Mean Corpuscular Volume 92.9 fl (80-100); Mean Platelet Volume 9.7 fl (7.4-10.4); Monocytes Percent Auto 8.3 % (2.6-8.5); Neutrophils Absolute Auto 9.2 K/mm3 (1.3-6.7); Neutrophils Percent Auto 77.7 % (45.5-73.1); Platelet Count Result 286 k/mm3 (150-375); Red Blood Count 3.38 M/mm3 (4.2-5.4); Red Cell Distribution Width 13.3 % (11.5-14.5); White Blood Count 11.9 K/mm3 (4.5-10.0)
[2024-01-23 07:16] LABS: Alanine Aminotransferase 21 U/L (6-35); Albumin Level 3.1 g/dL (3.5-5.1); Alkaline Phosphatase 74 U/L (38-126); Anion Gap 7 mmol/L (4-12); Aspartate Amino Transferase 34 U/L (14-36); Bilirubin,Total 0.5 mg/dL (0.2-1.3); Blood Urea Nitrogen 10 mg/dL (7-17); Calcium 8.4 mg/dL (8.4-10.2); Carbon Dioxide 26 mmol/L (22-30); Chloride 100 mmol/L (98-107); Estimated CRCL calculation 41 ml/min; Estimated Glomerular Filt Rate > 60; Glucose 103 mg/dL (65-110); Potassium 3.2 mmol/L (3.4-5.0); Sodium 133 mmol/L (137-145)
[2024-01-23] MEDS: hydroCHLOROthiazide 12.5 MG CAPSULE PO (08:47)
[2024-01-23] MEDS: SACCHAROMYCES BOULARDII 250 MG CAPSULE PO ×3 (08:47→16:42)
[2024-01-23] MEDS: LINEZOLID 600 MG TABLET PO ×2 (08:47→20:14)
[2024-01-23] MEDS: ENOXAPARIN 40 MG/0.4 ML SYRINGE SUB-Q (08:47)
[2024-01-23] MEDS: lisinopriL 20 MG TABLET PO (08:48)
[2024-01-23] MEDS: AMOXICILLIN/CLAVULANATE K 875-125 MG TAB 1 TABLET PO ×2 (08:48→20:13)
--- NOTE | 2024-01-23 10:32 | P.PNIM_ITS ---
Progress Note: A&P Assessment and Plan (1) Cellulitis: Qualifiers: Laterality: right Site of cellulitis: extremity Site of cellulitis of extremity: lower extremity Qualified Code(s): L03.115 - Cellulitis of right lower limb Code(s): L03.90 - Cellulitis, unspecified Status: Acute Assessment and Plan: admit to regular medical floor patient started on vancomycin and cefepime and Flagyl cultures in progress - margins are marked for monitoring 01/22/24: * Cultures from wound grew out Group G Strep. * Change Abx to oral Linezolid and Augmentin after consulting with ID pharmacist. * Blood cultures are preliminarily negative to this point. * WBC's are stable at 13.1. * Continue to monitor and adjust treatment as necessary. 01/23/24: * Pt with minimal appearance of improvement today with approximately 5 mm receding erythema from the outline of the cellulitic area after transitioning to oral abx yesterday. * WBC's are continuing to drop and today are 11.9. * Would like to see more improvement prior to discharge to make sure there is no worsening or development of systemic symptoms. (2) Hypokalemia: Code(s): E87.6 - Hypokalemia Status: Acute Assessment and Plan: 01/22/24: * Resolved. Today's Potassium is 3.4. * Monitor with Daily Labs. 01/23/24: * Potassium today is slightly decreased to 3.2. * She will receive a dose of 40 mEq of Potassium today * Repeat Potassium with labs in AM. (3) Acute kidney injury: Code(s): N17.9 - Acute kidney failure, unspecified Status: Resolved Assessment and Plan: likely prerenal azotemia holding lisinopril and hydrochlorothiazide 01/20- improved- monitor 01/22/24: * Resolved. Renal function has returned to normal at 0.80/12 with GFR of >60.0 * Will restart Lisinopril and HCTZ. * Continue to monitor with daily labs. 01/23/24: * Resolved. * Normal function 0.80/10 >60 (4) Hypothyroidism: Code(s): E03.9 - Hypothyroidism, unspecified Status: Chronic Assessment and Plan: 01/22/24: * Continue home dose of Synthroid. (5) Hyperlipidemia: Code(s): E78.5 - Hyperlipidemia, unspecified Status: Chronic Assessment and Plan: 01/22/24: * Continue statin therapy (6) Hypertension: Code(s): I10 - Essential (primary) hypertension Status: Acute Assessment and Plan: continue amlodipine - review and stable- holding lisinopril and hhctz fpr now 01/22/24: * Restart home doses of Lisinopril and HCTZ as pt's renal function has returned to normal. 01/23/24: * BP is stable. Continue home meds. Time Spent With Patient Time with patient: 15 - 25 minutes Subjective Date/time seen: 01/23/24 0832 Interval history: This pt was examined today at the bedside in interval assessment. She has no acute complaints and reports feeling fine overall. She was transitioned to oral abx yesterday of Linezolid and Augmentin and we were keeping her to start to see some overall improvement prior to her discharge to home. She has been afebrile, and her VS have otherwise been unremarkable. She has some minimal improvement in the appearance of her right leg cellulitis. I would like to see some more improvement and if better tomorrow she could be discharged. Review of Systems Review of Systems: All systems reviewed & are unremarkable except as noted in HPI and below Exam Narrative: Constitutional: Pleasant, elderly female pt
--- NOTE | 2024-01-23 10:32 | PM.IMPN ---
Progress Note: A&P Assessment and Plan (1) Cellulitis: Qualifiers: Laterality: right Site of cellulitis: extremity Site of cellulitis of extremity: lower extremity Qualified Code(s): L03.115 - Cellulitis of right lower limb Code(s): L03.90 - Cellulitis, unspecified Status: Acute Assessment and Plan: admit to regular medical floor patient started on vancomycin and cefepime and Flagyl cultures in progress - margins are marked for monitoring 01/22/24: Cultures from wound grew out Group G Strep. Change Abx to oral Linezolid and Augmentin after consulting with ID pharmacist. Blood cultures are preliminarily negative to this point. WBC's are stable at 13.1. Continue to monitor and adjust treatment as necessary. 01/23/24: Pt with minimal appearance of improvement today with approximately 5 mm receding erythema from the outline of the cellulitic area after transitioning to oral abx yesterday. WBC's are continuing to drop and today are 11.9. Would like to see more improvement prior to discharge to make sure there is no worsening or development of systemic symptoms. (2) Hypokalemia: Code(s): E87.6 - Hypokalemia Status: Acute Assessment and Plan: 01/22/24: Resolved. Today's Potassium is 3.4. Monitor with Daily Labs. 01/23/24: Potassium today is slightly decreased to 3.2. She will receive a dose of 40 mEq of Potassium today Repeat Potassium with labs in AM. (3) Acute kidney injury: Code(s): N17.9 - Acute kidney failure, unspecified Status: Resolved Assessment and Plan: likely prerenal azotemia holding lisinopril and hydrochlorothiazide 01/20- improved- monitor 01/22/24: Resolved. Renal function has returned to normal at 0.80/12 with GFR of >60.0 Will restart Lisinopril and HCTZ. Continue to monitor with daily labs. 01/23/24: Resolved. Normal function 0.80/10 >60 (4) Hypothyroidism: Code(s): E03.9 - Hypothyroidism, unspecified Status: Chronic Assessment and Plan: 01/22/24: Continue home dose of Synthroid. (5) Hyperlipidemia: Code(s): E78.5 - Hyperlipidemia, unspecified Status: Chronic Assessment and Plan: 01/22/24: Continue statin therapy (6) Hypertension: Code(s): I10 - Essential (primary) hypertension Status: Acute Assessment and Plan: continue amlodipine - review and stable- holding lisinopril and hhctz fpr now 01/22/24: Restart home doses of Lisinopril and HCTZ as pt's renal function has returned to normal. 01/23/24: BP is stable. Continue home meds. Time Spent With Patient Time with patient: 15 - 25 minutes Subjective Date/time seen: 01/23/24 0832 Interval history: This pt was examined today at the bedside in interval assessment. She has no acute complaints and reports feeling fine overall. She was transitioned to oral abx yesterday of Linezolid and Augmentin and we were keeping her to start to see some overall improvement prior to her discharge to home. She has been afebrile, and her VS have otherwise been unremarkable. She has some minimal improvement in the appearance of her right leg cellulitis. I would like to see some more improvement and if better tomorrow she could be discharged. Review of Systems Review of Systems: All systems reviewed & are unremarkable except as noted in HPI and below Exam Narrative: Constitutional: Pleasant, elderly female pt lying supine in bed at this time. She does not appear to be in any acute distress. HEENT: Head is normocephalic and atraumatic. MMM, clear oropharynx EYES: PERRLA, no conjunctivitis and no drainage. NECK: Supple and FROM, no LN RESPIRATORY: CTAB in all manzo CARDIO: RRR, S1 and S2 present without any M,R,G,H GI: Soft, NT, BS present x4, no rebound, guarding. SKIN: RLE with erythema and edema from the right ankle up to the knee. There is a scabbed over area on the medial side of the lower leg w
[2024-01-23] MEDS: POTASSIUM CHLORIDE 20 MEQ PACKET (FOR LIQUID) 40 MEQ PO (11:05)
[2024-01-23 14:00] VITALS: BP 144/83; PULSE 70; RESP 16; TEMP 36.4; O2SAT 96
[2024-01-23 20:10] VITALS: BP 144/59; PULSE 64; RESP 18; TEMP 36.3; O2SAT 99
[2024-01-23 20:13] VITALS: PULSE 65
[2024-01-23] MEDS: atenoloL 25 MG TABLET PO (20:13)
[2024-01-23] MEDS: ATORVASTATIN 40 MG TABLET PO (20:13)
[2024-01-23] MEDS: amLODIPine BESYLATE 5 MG TABLET PO (20:13)
[2024-01-24 04:50] VITALS: BP 140/55; PULSE 52; RESP 20; TEMP 36.7; O2SAT 98
[2024-01-24] MEDS: LEVOTHYROXINE SODIUM 50 MCG TABLET PO (06:24)
[2024-01-24 07:06] LABS: Basophils Absolute Auto 0.1 K/mm3 (0.0-0.1); Basophils Percent Auto 0.8 % (0.2-1.2); Eosinophils Absolute Auto 0.3 K/mm3 (0-0.3); Eosinophils Percent Auto 2.2 % (0-4.4); Hematocrit 34.1 % (37.0-47.0); Hemoglobin 11.1 g/dL (12.0-15.0); Immature Granulocyte Absolute 0.25 K/mm3 (0.00-0.031); Immature Granulocyte Percent A 2.2 % (0-0.5); Lymphocytes Absolute Auto 1.49 K/mm3 (0.9-3.2); Lymphocytes Percent Auto 12.9 % (18.3-44.2); Mean Corpuscular HGB Conc 32.6 g/dl (32-36); Mean Corpuscular Hemoglobin 31.1 pg (26-34); Mean Corpuscular Volume 95.5 fl (80-100); Mean Platelet Volume 9.7 fl (7.4-10.4); Monocytes Absolute Auto 0.9 K/mm3 (0.1-0.6); Monocytes Percent Auto 8.1 % (2.6-8.5); Neutrophils Absolute Auto 8.5 K/mm3 (1.3-6.7); Neutrophils Percent Auto 73.8 % (45.5-73.1); Platelet Count Result 350 k/mm3 (150-375); Red Blood Count 3.57 M/mm3 (4.2-5.4); Red Cell Distribution Width 13.3 % (11.5-14.5); White Blood Count 11.5 K/mm3 (4.5-10.0)
[2024-01-24 07:15] LABS: Alanine Aminotransferase 48 U/L (6-35); Anion Gap 8 mmol/L (4-12); Aspartate Amino Transferase 103 U/L (14-36); Bilirubin,Total 0.5 mg/dL (0.2-1.3); Blood Urea Nitrogen 10 mg/dL (7-17); Calcium 8.4 mg/dL (8.4-10.2); Carbon Dioxide 27 mmol/L (22-30); Chloride 100 mmol/L (98-107); Estimated CRCL calculation 41 ml/min; Estimated Glomerular Filt Rate > 60; Glucose 103 mg/dL (65-110); Potassium 3.7 mmol/L (3.4-5.0); Sodium 135 mmol/L (137-145)
[2024-01-24 07:16] LABS: Albumin Level 3.3 g/dL (3.5-5.1); Alkaline Phosphatase 84 U/L (38-126)
[2024-01-24 08:00] VITALS: PULSE 65; RESP 20; O2SAT 100
[2024-01-24] MEDS: hydroCHLOROthiazide 12.5 MG CAPSULE PO (08:50)
[2024-01-24] MEDS: AMOXICILLIN/CLAVULANATE K 875-125 MG TAB 1 TABLET PO (08:50)
[2024-01-24] MEDS: LINEZOLID 600 MG TABLET PO ×2 (08:50→20:07)
[2024-01-24] MEDS: SACCHAROMYCES BOULARDII 250 MG CAPSULE PO ×3 (08:50→17:31)
[2024-01-24] MEDS: lisinopriL 20 MG TABLET PO (08:50)
[2024-01-24] MEDS: cefTRIAXone 2 GM/NS 100 ML 2 GM/100 ML BAG IVPB (13:41)
[2024-01-24 14:49] VITALS: BP 150/44; PULSE 65; RESP 20; TEMP 36.4; O2SAT 100
--- NOTE | 2024-01-24 15:37 | PM.IMPN ---
Progress Note: A&P Assessment and Plan (1) Cellulitis: Qualifiers: Laterality: right Site of cellulitis: extremity Site of cellulitis of extremity: lower extremity Qualified Code(s): L03.115 - Cellulitis of right lower limb Code(s): L03.90 - Cellulitis, unspecified Status: Acute Assessment and Plan: - cultures in progress. - Blood cultures NGTD. - margins are marked for monitoring 01/22/24: Cultures from wound grew out Group G Strep. Change Abx to oral Linezolid and Augmentin after consulting with ID pharmacist. Blood cultures are preliminarily negative to this point. WBC's are stable at 13.1. Continue to monitor and adjust treatment as necessary. 01/23/24: Pt with minimal appearance of improvement today with approximately 5 mm receding erythema from the outline of the cellulitic area after transitioning to oral abx yesterday. WBC's are continuing to drop and today are 11.9. Would like to see more improvement prior to discharge to make sure there is no worsening or development of systemic symptoms. 01/24/24: - Preliminary blood cultures NGTD. - Wound cultures growing Group G Strep. - WBC's trending down. - Started on Ceftriaxone with little to no improvement on PO abx. - Continue to follow blood-cultures. (2) Acute kidney injury: Code(s): N17.9 - Acute kidney failure, unspecified Status: Resolved Assessment and Plan: likely prerenal azotemia holding lisinopril and hydrochlorothiazide 01/20- improved- monitor 01/22/24: Resolved. Renal function has returned to normal at 0.80/12 with GFR of >60.0 Will restart Lisinopril and HCTZ. Continue to monitor with daily labs. 01/23/24: Resolved. Normal function 0.80/10 >60 01/24/24: Resolved. (3) Hypothyroidism: Code(s): E03.9 - Hypothyroidism, unspecified Status: Chronic Assessment and Plan: 01/22/24: 01/24/24: Continue home dose of Synthroid. (4) Hyperlipidemia: Code(s): E78.5 - Hyperlipidemia, unspecified Status: Chronic Assessment and Plan: 01/22/24: 01/24/24: Continue statin therapy (5) Hypertension: Code(s): I10 - Essential (primary) hypertension Status: Acute Assessment and Plan: continue amlodipine - review and stable- holding lisinopril and hhctz fpr now 01/22/24: Restart home doses of Lisinopril and HCTZ as pt's renal function has returned to normal. 01/23/24: BP is stable. Continue home meds. 01/24/24: - Appears fairly controlled. - Monitor on home meds. Plan Code Status: FULL-CODE. DVT PPx: Lovenox. Time Spent With Patient Time with patient: 25 - 35 minutes Subjective Date/time seen: 01/24/24 09:37 Interval history: Patient presented to the hospital with Right Lower leg redness and swelling that started with a small wound she sustained from her dog-leash. She was diagnosed with Right-lower leg cellullitis and had been on IV antibiotics that were converted to oral Linezolid and Augmentin. Patient's blood-cultures are NGTD, with wound cultures growing Group-G Streptococcus. Pt reporting not much improvement in redness and swelling, and will be restarted on IV antibiotics due to possible failure of oral antibiotics. Review of Systems Review of Systems: RLE redness, warmth, tenderness, skin tear All systems reviewed & are unremarkable except as noted in HPI and below Constitutional: Constitutional: Reports as per HPI, Reports no additional constitutional complaints and Reports chills Eyes: Eyes: Reports as per HPI, Reports no additional eye complaints and Denies change in vision ENT: Reports system reviewed and no additional complaints, except as documented, Reports as per HPI, Denies dysphagia and Denies odynophagia Cardiovascular: Cardiovascular: Reports as per HPI, Reports no additional cardiovascular complaints, Denies chest pain and Denies palpitations Respiratory: Respiratory: Reports as per HPI, Reports n
[2024-01-24] MEDS: amLODIPine BESYLATE 5 MG TABLET PO (20:07)
[2024-01-24] MEDS: ATORVASTATIN 40 MG TABLET PO (20:07)
[2024-01-24] MEDS: atenoloL 25 MG TABLET PO (20:07)
[2024-01-24 21:34] VITALS: BP 162/63; PULSE 70; RESP 20; TEMP 37.2; O2SAT 99
[2024-01-25] MEDS: LEVOTHYROXINE SODIUM 50 MCG TABLET PO (05:14)
[2024-01-25 06:00] VITALS: BP 133/53; PULSE 54; RESP 18; TEMP 36.8; O2SAT 99
[2024-01-25 06:42] LABS: Basophils Absolute Auto 0.1 K/mm3 (0.0-0.1); Basophils Percent Auto 0.7 % (0.2-1.2); Eosinophils Absolute Auto 0.3 K/mm3 (0-0.3); Eosinophils Percent Auto 2.9 % (0-4.4); Hemoglobin 10.3 g/dL (12.0-15.0); Immature Granulocyte Absolute 0.37 K/mm3 (0.00-0.031); Immature Granulocyte Percent A 3.8 % (0-0.5); Lymphocytes Absolute Auto 1.63 K/mm3 (0.9-3.2); Lymphocytes Percent Auto 16.7 % (18.3-44.2); Mean Corpuscular HGB Conc 33.2 g/dl (32-36); Mean Corpuscular Hemoglobin 31.6 pg (26-34); Mean Corpuscular Volume 95.1 fl (80-100); Mean Platelet Volume 9.3 fl (7.4-10.4); Monocytes Absolute Auto 0.9 K/mm3 (0.1-0.6); Neutrophils Absolute Auto 6.5 K/mm3 (1.3-6.7); Neutrophils Percent Auto 66.9 % (45.5-73.1); Platelet Count Result 371 k/mm3 (150-375); Red Blood Count 3.26 M/mm3 (4.2-5.4); Red Cell Distribution Width 13.4 % (11.5-14.5); White Blood Count 9.8 K/mm3 (4.5-10.0)
[2024-01-25 06:59] LABS: Alanine Aminotransferase 64 U/L (6-35); Alkaline Phosphatase 77 U/L (38-126); Anion Gap 8 mmol/L (4-12); Aspartate Amino Transferase 107 U/L (14-36); Bilirubin,Total 0.3 mg/dL (0.2-1.3); Blood Urea Nitrogen 9 mg/dL (7-17); Calcium 8.5 mg/dL (8.4-10.2); Carbon Dioxide 27 mmol/L (22-30); Chloride 99 mmol/L (98-107); Estimated CRCL calculation 41 ml/min; Estimated Glomerular Filt Rate > 60; Glucose 102 mg/dL (65-110); Potassium 3.4 mmol/L (3.4-5.0); Sodium 134 mmol/L (137-145)
[2024-01-25 08:00] VITALS: BP 156/60; PULSE 54; RESP 18; TEMP 36.4; O2SAT 100
[2024-01-25] MEDS: SACCHAROMYCES BOULARDII 250 MG CAPSULE PO ×3 (09:39→17:24)
[2024-01-25] MEDS: ENOXAPARIN 40 MG/0.4 ML SYRINGE SUB-Q (09:39)
[2024-01-25] MEDS: lisinopriL 20 MG TABLET PO (09:39)
[2024-01-25] MEDS: cefTRIAXone 2 GM/NS 100 ML 2 GM/100 ML BAG IVPB (09:39)
[2024-01-25] MEDS: LINEZOLID 600 MG TABLET PO ×2 (09:39→20:19)
[2024-01-25] MEDS: hydroCHLOROthiazide 12.5 MG CAPSULE PO (09:39)
--- NOTE | 2024-01-25 11:25 | PM.IMPN ---
Progress Note: A&P Assessment and Plan (1) Cellulitis: Qualifiers: Laterality: right Site of cellulitis: extremity Site of cellulitis of extremity: lower extremity Qualified Code(s): L03.115 - Cellulitis of right lower limb Code(s): L03.90 - Cellulitis, unspecified Status: Acute Assessment and Plan: - cultures in progress. - Blood cultures NGTD. - margins are marked for monitoring 01/22/24: Cultures from wound grew out Group G Strep. Change Abx to oral Linezolid and Augmentin after consulting with ID pharmacist. Blood cultures are preliminarily negative to this point. WBC's are stable at 13.1. Continue to monitor and adjust treatment as necessary. 01/23/24: Pt with minimal appearance of improvement today with approximately 5 mm receding erythema from the outline of the cellulitic area after transitioning to oral abx yesterday. WBC's are continuing to drop and today are 11.9. Would like to see more improvement prior to discharge to make sure there is no worsening or development of systemic symptoms. 01/24/24: - Preliminary blood cultures NGTD. - Wound cultures growing Group G Strep. - WBC's trending down. - Started on Ceftriaxone with little to no improvement on PO abx. - Continue to follow blood-cultures. 01/25/24: - Some improvement in redness and swelling compared to yesterday. - Continue Ceftriaxone and Linezolid. - Preliminary blood cultures NGTD. - Wound cultures growing Group G Strep. - Continue current abx therapy. (2) Acute kidney injury: Code(s): N17.9 - Acute kidney failure, unspecified Status: Resolved Assessment and Plan: likely prerenal azotemia holding lisinopril and hydrochlorothiazide 01/20- improved- monitor 01/22/24: Resolved. Renal function has returned to normal at 0.80/12 with GFR of >60.0 Will restart Lisinopril and HCTZ. Continue to monitor with daily labs. 01/23/24: Resolved. Normal function 0.80/10 >60 01/24/24: Resolved. (3) Hypothyroidism: Code(s): E03.9 - Hypothyroidism, unspecified Status: Chronic Assessment and Plan: 01/22/24: 01/24/24: Continue home dose of Synthroid. (4) Hyperlipidemia: Code(s): E78.5 - Hyperlipidemia, unspecified Status: Chronic Assessment and Plan: 01/22/24: 01/24/24: Continue statin therapy (5) Hypertension: Code(s): I10 - Essential (primary) hypertension Status: Acute Assessment and Plan: continue amlodipine - review and stable- holding lisinopril and hhctz fpr now 01/22/24: Restart home doses of Lisinopril and HCTZ as pt's renal function has returned to normal. 01/23/24: BP is stable. Continue home meds. 01/24/24: - Appears fairly controlled. - Monitor on home meds. Plan Code Status: FULL-CODE. DVT PPx: Lovenox. Subjective Date/time seen: 01/25/24 10:25 Interval history: Patient presented to the hospital with Right Lower leg redness and swelling that started with a small wound she sustained from her dog-leash. She was diagnosed with Right-lower leg cellullitis and was initially on oral Linezolid and Augmentin, but restarted on Ceftriaxone due to poor improvement in symptoms. Patient's blood-cultures are NGTD, with wound cultures growing Group-G Streptococcus. Pt reports feeling some improvement in symptoms since restarting IV antibiotics. Patient denies any fevers or severe pain, stating tightness of RLE skin is improving. Review of Systems Review of Systems: All systems reviewed & are unremarkable except as noted in HPI and below Constitutional: Constitutional: Reports as per HPI, Reports no additional constitutional complaints and Reports chills Eyes: Eyes: Reports as per HPI, Reports no additional eye complaints and Denies change in vision ENT: Reports system reviewed and no additional complaints, except as documented, Reports as per HPI, Denies dysphagia and Denies odynophagia Cardiovascular: Cardiov
--- NOTE | 2024-01-25 17:01 | PC.NURSE ---
On 01/25/24, the FAMILY SERVICES WORKER, REUBEN POWERS , provided care and completed [facility] medical documentation on this patient. I have reviewed the FAMILY SERVICES WORKER's documentation and agree with the findings.
[2024-01-25 18:13] VITALS: BP 146/66; PULSE 77; RESP 18; TEMP 36.6; O2SAT 100
[2024-01-25] MEDS: amLODIPine BESYLATE 5 MG TABLET PO (20:19)
[2024-01-25] MEDS: ATORVASTATIN 40 MG TABLET PO (20:19)
[2024-01-25] MEDS: atenoloL 25 MG TABLET PO (20:19)
[2024-01-25 21:30] VITALS: BP 129/55; PULSE 63; RESP 13; TEMP 36.2; O2SAT 100
[2024-01-26 05:37] VITALS: BP 130/52; PULSE 51; RESP 13; TEMP 36.2; O2SAT 100
[2024-01-26] MEDS: LEVOTHYROXINE SODIUM 50 MCG TABLET PO (06:00)
[2024-01-26 06:24] LABS: Basophils Absolute Auto 0.1 K/mm3 (0.0-0.1); Eosinophils Absolute Auto 0.3 K/mm3 (0-0.3); Eosinophils Percent Auto 2.5 % (0-4.4); Hemoglobin 10.4 g/dL (12.0-15.0); Immature Granulocyte Absolute 0.25 K/mm3 (0.00-0.031); Immature Granulocyte Percent A 2.5 % (0-0.5); Lymphocytes Percent Auto 19.1 % (18.3-44.2); Mean Corpuscular HGB Conc 32.5 g/dl (32-36); Mean Corpuscular Hemoglobin 30.8 pg (26-34); Mean Corpuscular Volume 94.7 fl (80-100); Mean Platelet Volume 9.3 fl (7.4-10.4); Neutrophils Absolute Auto 6.4 K/mm3 (1.3-6.7); Neutrophils Percent Auto 64.9 % (45.5-73.1); Platelet Count Result 395 k/mm3 (150-375); Red Blood Count 3.38 M/mm3 (4.2-5.4); Red Cell Distribution Width 13.2 % (11.5-14.5); White Blood Count 9.9 K/mm3 (4.5-10.0)
[2024-01-26 06:35] LABS: Alanine Aminotransferase 61 U/L (6-35); Alkaline Phosphatase 75 U/L (38-126); Anion Gap 5 mmol/L (4-12); Aspartate Amino Transferase 72 U/L (14-36); Bilirubin,Total 0.3 mg/dL (0.2-1.3); Blood Urea Nitrogen 13 mg/dL (7-17); Calcium 8.7 mg/dL (8.4-10.2); Carbon Dioxide 28 mmol/L (22-30); Chloride 101 mmol/L (98-107); Estimated CRCL calculation 33 ml/min; Estimated Glomerular Filt Rate 53; Glucose 104 mg/dL (65-110); Potassium 3.5 mmol/L (3.4-5.0); Sodium 134 mmol/L (137-145)
[2024-01-26] MEDS: cefTRIAXone 2 GM/NS 100 ML 2 GM/100 ML BAG IVPB (09:19)
[2024-01-26] MEDS: SACCHAROMYCES BOULARDII 250 MG CAPSULE PO ×3 (09:19→17:56)
[2024-01-26] MEDS: ENOXAPARIN 40 MG/0.4 ML SYRINGE SUB-Q (09:19)
[2024-01-26] MEDS: LINEZOLID 600 MG TABLET PO ×2 (09:19→20:37)
[2024-01-26] MEDS: hydroCHLOROthiazide 12.5 MG CAPSULE PO (09:19)
[2024-01-26] MEDS: lisinopriL 20 MG TABLET PO (09:19)
--- NOTE | 2024-01-26 10:12 | PCNWS ---
Weekly nutritional screen. Patient is tolerating current Regular diet with adequate intake at 75-100% all meals. No weight loss reported. No nutritional needs at this time.
[2024-01-26 13:49] VITALS: BP 141/68; PULSE 65; RESP 16; TEMP 36.1; O2SAT 99
--- NOTE | 2024-01-26 14:12 | P.PNIM_ITS ---
Progress Note: A&P Assessment and Plan (1) Cellulitis: Qualifiers: Laterality: right Site of cellulitis: extremity Site of cellulitis of extremity: lower extremity Qualified Code(s): L03.115 - Cellulitis of right lower limb Code(s): L03.90 - Cellulitis, unspecified Status: Acute Assessment and Plan: - cultures in progress. - Blood cultures NGTD. - margins are marked for monitoring 01/22/24: * Cultures from wound grew out Group G Strep. * Change Abx to oral Linezolid and Augmentin after consulting with ID pharmacist. * Blood cultures are preliminarily negative to this point. * WBC's are stable at 13.1. * Continue to monitor and adjust treatment as necessary. 01/23/24: * Pt with minimal appearance of improvement today with approximately 5 mm receding erythema from the outline of the cellulitic area after transitioning to oral abx yesterday. * WBC's are continuing to drop and today are 11.9. * Would like to see more improvement prior to discharge to make sure there is no worsening or development of systemic symptoms. * 01/24/24: - Preliminary blood cultures NGTD. - Wound cultures growing Group G Strep. - WBC's trending down. - Started on Ceftriaxone with little to no improvement on PO abx. - Continue to follow blood-cultures. 01/25/24: - Some improvement in redness and swelling compared to yesterday. - Continue Ceftriaxone and Linezolid. - Preliminary blood cultures NGTD. - Wound cultures growing Group G Strep. - Continue current abx therapy. 01/26/24: - Slight improvement in redness and swelling RLE. - With slow progression of improvement, will order CT RLE to r/o possible drainable abscess. - Continue current IV abx therapy. (2) Acute kidney injury: Code(s): N17.9 - Acute kidney failure, unspecified Status: Resolved Assessment and Plan: likely prerenal azotemia holding lisinopril and hydrochlorothiazide 01/20- improved- monitor 01/22/24: * Resolved. Renal function has returned to normal at 0.80/12 with GFR of >60.0 * Will restart Lisinopril and HCTZ. * Continue to monitor with daily labs. 01/23/24: * Resolved. * Normal function 0.80/10 >60 * 8/14/24: Resolved. (3) Hypothyroidism: Code(s): E03.9 - Hypothyroidism, unspecified Status: Chronic Assessment and Plan: 01/22/24: 01/24/24: * Continue home dose of Synthroid. 01/26/24: Continue synthroid. (4) Hyperlipidemia: Code(s): E78.5 - Hyperlipidemia, unspecified Status: Chronic Assessment and Plan: 01/22/24: 01/24/24: 01/26/24 * Continue statin therapy (5) Hypertension: Code(s): I10 - Essential (primary) hypertension Status: Acute Assessment and Plan: continue amlodipine - review and stable- holding lisinopril and hhctz fpr now 01/22/24: * Restart home doses of Lisinopril and HCTZ as pt's renal function has returned to normal. 01/23/24: * BP is stable. Continue home meds. 01/24/24: - Appears fairly controlled. - Monitor on home meds. 01/26/24: - Continue home meds. Plan Code Status: FULL-CODE. DVT PPx: Lovenox. Time Spent With Patient Time with patient: 25 - 35 minutes Subjective Date/time seen: 01/26/24 10:12 Interval history: Patient presented to the hospital with Right Lower leg redness and swelling that started with a small wound she sustained from her dog-leash. She was diagnosed with Right-lower leg cellullitis and was initially on o
--- NOTE | 2024-01-26 14:12 | PM.IMPN ---
Progress Note: A&P Assessment and Plan (1) Cellulitis: Qualifiers: Laterality: right Site of cellulitis: extremity Site of cellulitis of extremity: lower extremity Qualified Code(s): L03.115 - Cellulitis of right lower limb Code(s): L03.90 - Cellulitis, unspecified Status: Acute Assessment and Plan: - cultures in progress. - Blood cultures NGTD. - margins are marked for monitoring 01/22/24: Cultures from wound grew out Group G Strep. Change Abx to oral Linezolid and Augmentin after consulting with ID pharmacist. Blood cultures are preliminarily negative to this point. WBC's are stable at 13.1. Continue to monitor and adjust treatment as necessary. 01/23/24: Pt with minimal appearance of improvement today with approximately 5 mm receding erythema from the outline of the cellulitic area after transitioning to oral abx yesterday. WBC's are continuing to drop and today are 11.9. Would like to see more improvement prior to discharge to make sure there is no worsening or development of systemic symptoms. 01/24/24: - Preliminary blood cultures NGTD. - Wound cultures growing Group G Strep. - WBC's trending down. - Started on Ceftriaxone with little to no improvement on PO abx. - Continue to follow blood-cultures. 01/25/24: - Some improvement in redness and swelling compared to yesterday. - Continue Ceftriaxone and Linezolid. - Preliminary blood cultures NGTD. - Wound cultures growing Group G Strep. - Continue current abx therapy. 01/26/24: - Slight improvement in redness and swelling RLE. - With slow progression of improvement, will order CT RLE to r/o possible drainable abscess. - Continue current IV abx therapy. (2) Acute kidney injury: Code(s): N17.9 - Acute kidney failure, unspecified Status: Resolved Assessment and Plan: likely prerenal azotemia holding lisinopril and hydrochlorothiazide 01/20- improved- monitor 01/22/24: Resolved. Renal function has returned to normal at 0.80/12 with GFR of >60.0 Will restart Lisinopril and HCTZ. Continue to monitor with daily labs. 01/23/24: Resolved. Normal function 0.80/10 >60 01/24/24: Resolved. (3) Hypothyroidism: Code(s): E03.9 - Hypothyroidism, unspecified Status: Chronic Assessment and Plan: 01/22/24: 01/24/24: Continue home dose of Synthroid. 01/26/24: Continue synthroid. (4) Hyperlipidemia: Code(s): E78.5 - Hyperlipidemia, unspecified Status: Chronic Assessment and Plan: 01/22/24: 01/24/24: 01/26/24 Continue statin therapy (5) Hypertension: Code(s): I10 - Essential (primary) hypertension Status: Acute Assessment and Plan: continue amlodipine - review and stable- holding lisinopril and hhctz fpr now 01/22/24: Restart home doses of Lisinopril and HCTZ as pt's renal function has returned to normal. 01/23/24: BP is stable. Continue home meds. 01/24/24: - Appears fairly controlled. - Monitor on home meds. 01/26/24: - Continue home meds. Plan Code Status: FULL-CODE. DVT PPx: Lovenox. Time Spent With Patient Time with patient: 25 - 35 minutes Subjective Date/time seen: 01/26/24 10:12 Interval history: Patient presented to the hospital with Right Lower leg redness and swelling that started with a small wound she sustained from her dog-leash. She was diagnosed with Right-lower leg cellullitis and was initially on oral Linezolid and Augmentin, but restarted on Ceftriaxone due to poor improvement in symptoms. Patient's blood-cultures are NGTD, with wound cultures growing Group-G Streptococcus. Pt reporting some slight improvement in pain and redness today. States has been ambulating well in the room. Review of Systems Review of Systems: RLE redness, warmth, tenderness, dry skin tear All systems reviewed & are unremarkable except as noted in HPI and below Constitutional: Constitutional: Reports as per HPI, Re
[2024-01-26 20:21] VITALS: BP 150/54; PULSE 70; RESP 18; TEMP 36.6; O2SAT 100
[2024-01-26] MEDS: atenoloL 25 MG TABLET PO (20:37)
[2024-01-26] MEDS: ATORVASTATIN 40 MG TABLET PO (20:37)
[2024-01-26] MEDS: amLODIPine BESYLATE 5 MG TABLET PO (20:37)
[2024-01-27 05:07] VITALS: BP 129/52; PULSE 62; RESP 16; TEMP 36.6; O2SAT 99
[2024-01-27 05:44] LABS: Basophils Absolute Auto 0.1 K/mm3 (0.0-0.1); Basophils Percent Auto 0.7 % (0.2-1.2); Eosinophils Absolute Auto 0.2 K/mm3 (0-0.3); Eosinophils Percent Auto 2.2 % (0-4.4); Hematocrit 29.6 % (37.0-47.0); Hemoglobin 9.9 g/dL (12.0-15.0); Immature Granulocyte Absolute 0.14 K/mm3 (0.00-0.031); Immature Granulocyte Percent A 1.5 % (0-0.5); Lymphocytes Absolute Auto 2.04 K/mm3 (0.9-3.2); Lymphocytes Percent Auto 21.6 % (18.3-44.2); Mean Corpuscular HGB Conc 33.4 g/dl (32-36); Mean Corpuscular Hemoglobin 31.9 pg (26-34); Mean Corpuscular Volume 95.5 fl (80-100); Mean Platelet Volume 9.1 fl (7.4-10.4); Monocytes Absolute Auto 0.9 K/mm3 (0.1-0.6); Monocytes Percent Auto 9.8 % (2.6-8.5); Neutrophils Absolute Auto 6.1 K/mm3 (1.3-6.7); Neutrophils Percent Auto 64.2 % (45.5-73.1); Platelet Count Result 403 k/mm3 (150-375); Red Cell Distribution Width 13.3 % (11.5-14.5); White Blood Count 9.5 K/mm3 (4.5-10.0)
[2024-01-27 05:56] LABS: Alanine Aminotransferase 48 U/L (6-35); Alkaline Phosphatase 72 U/L (38-126); Anion Gap 9 mmol/L (4-12); Aspartate Amino Transferase 48 U/L (14-36); Bilirubin,Total 0.3 mg/dL (0.2-1.3); Blood Urea Nitrogen 12 mg/dL (7-17); Calcium 8.6 mg/dL (8.4-10.2); Carbon Dioxide 26 mmol/L (22-30); Chloride 100 mmol/L (98-107); Estimated CRCL calculation 33 ml/min; Estimated Glomerular Filt Rate 53; Glucose 103 mg/dL (65-110); Potassium 3.3 mmol/L (3.4-5.0); Sodium 135 mmol/L (137-145)
[2024-01-27] MEDS: LEVOTHYROXINE SODIUM 50 MCG TABLET PO (06:19)
[2024-01-27] MEDS: ENOXAPARIN 40 MG/0.4 ML SYRINGE SUB-Q (08:47)
[2024-01-27] MEDS: SACCHAROMYCES BOULARDII 250 MG CAPSULE PO ×3 (08:48→18:16)
[2024-01-27] MEDS: lisinopriL 20 MG TABLET PO (08:48)
[2024-01-27] MEDS: hydroCHLOROthiazide 12.5 MG CAPSULE PO (08:48)
[2024-01-27] MEDS: LINEZOLID 600 MG TABLET PO ×2 (08:48→21:04)
[2024-01-27] MEDS: cefTRIAXone 2 GM/NS 100 ML 2 GM/100 ML BAG IVPB (08:48)
--- NOTE | 2024-01-27 13:03 | PM.IMPN ---
Progress Note: A&P Assessment and Plan (1) Cellulitis: Qualifiers: Laterality: right Site of cellulitis: extremity Site of cellulitis of extremity: lower extremity Qualified Code(s): L03.115 - Cellulitis of right lower limb Code(s): L03.90 - Cellulitis, unspecified Status: Acute Assessment and Plan: - cultures in progress. - Blood cultures NGTD. - margins are marked for monitoring 01/22/24: Cultures from wound grew out Group G Strep. Change Abx to oral Linezolid and Augmentin after consulting with ID pharmacist. Blood cultures are preliminarily negative to this point. WBC's are stable at 13.1. Continue to monitor and adjust treatment as necessary. 01/23/24: Pt with minimal appearance of improvement today with approximately 5 mm receding erythema from the outline of the cellulitic area after transitioning to oral abx yesterday. WBC's are continuing to drop and today are 11.9. Would like to see more improvement prior to discharge to make sure there is no worsening or development of systemic symptoms. 01/24/24: - Preliminary blood cultures NGTD. - Wound cultures growing Group G Strep. - WBC's trending down. - Started on Ceftriaxone with little to no improvement on PO abx. - Continue to follow blood-cultures. 01/25/24: - Some improvement in redness and swelling compared to yesterday. - Continue Ceftriaxone and Linezolid. - Preliminary blood cultures NGTD. - Wound cultures growing Group G Strep. - Continue current abx therapy. 01/26/24: - Slight improvement in redness and swelling RLE. - With slow progression of improvement, will order CT RLE to r/o possible drainable abscess. - Continue current IV abx therapy. 01/27/24: - Continues to slowly improve daily. - Continue current abx therapy. - No fevers and WBC's stable. 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 Further evaluation advised. Edema in the subcutaneous tissues below the knee more prominent on the dorsum of the foot. - Patient reports occasional episodes of numbness to LE but unsure if related to old age. - Venous dopplers ordered due to patient's RLE redness and swelling. - Follow results. - Consider CTA abd/pelvis if renal function allows. - Further w/u pending ordered imaging. (3) Acute kidney injury: Code(s): N17.9 - Acute kidney failure, unspecified Status: Resolved Assessment and Plan: likely prerenal azotemia holding lisinopril and hydrochlorothiazide 01/20- improved- monitor 01/22/24: Resolved. Renal function has returned to normal at 0.80/12 with GFR of >60.0 Will restart Lisinopril and HCTZ. Continue to monitor with daily labs. 01/23/24: Resolved. Normal function 0.80/10 >60 01/24/24: Resolved. (4) Hypothyroidism: Code(s): E03.9 - Hypothyroidism, unspecified Status: Chronic Assessment and Plan: 01/22/24: 01/24/24: Continue home dose of Synthroid. 01/26/24: Continue synthroid. 01/27/24: - Synthroid. (5) Hyperlipidemia: Code(s): E78.5 - Hyperlipidemia, unspecified Status: Chronic Assessment and Plan: 01/22/24: 01/24/24: 01/26/24 Continue statin therapy 01/26/23: - Continue statin. (6) Hypertension: Code(s): I10 - Essential (primary) hypertension Status: Acute Assessment and Plan: continue amlodipine - review and stable- holding lisinopril and hhctz fpr now 01/22/24: Restart home doses of Lisinopril and HCTZ as pt's renal function has returned to normal. 01/23/24: BP is stable. Continue home meds. 01/24/24: - Appears fairly controlled. - Monitor on home meds. 01/26/24: - Continue home meds. 01/27/24: - Well controlled. - Continue current therapy. Plan
[2024-01-27 14:25] VITALS: BP 135/58; PULSE 62; RESP 16; TEMP 35.9; O2SAT 99
[2024-01-27 21:03] VITALS: PULSE 72
[2024-01-27] MEDS: amLODIPine BESYLATE 5 MG TABLET PO (21:03)
[2024-01-27] MEDS: atenoloL 25 MG TABLET PO (21:03)
[2024-01-27] MEDS: ATORVASTATIN 40 MG TABLET PO (21:03)
[2024-01-27 21:09] VITALS: BP 137/67; PULSE 72; RESP 16; TEMP 36.9; O2SAT 100
[2024-01-28 05:27] VITALS: BP 137/50; PULSE 52; RESP 16; TEMP 36.3; O2SAT 99
[2024-01-28] MEDS: LEVOTHYROXINE SODIUM 50 MCG TABLET PO (06:25)
[2024-01-28 06:39] LABS: Basophils Absolute Auto 0.1 K/mm3 (0.0-0.1); Basophils Percent Auto 0.8 % (0.2-1.2); Eosinophils Absolute Auto 0.2 K/mm3 (0-0.3); Eosinophils Percent Auto 2.6 % (0-4.4); Hematocrit 30.4 % (37.0-47.0); Hemoglobin 10.1 g/dL (12.0-15.0); Immature Granulocyte Absolute 0.11 K/mm3 (0.00-0.031); Immature Granulocyte Percent A 1.4 % (0-0.5); Lymphocytes Absolute Auto 1.66 K/mm3 (0.9-3.2); Lymphocytes Percent Auto 21.7 % (18.3-44.2); Mean Corpuscular HGB Conc 33.2 g/dl (32-36); Mean Corpuscular Hemoglobin 31.7 pg (26-34); Mean Corpuscular Volume 95.3 fl (80-100); Mean Platelet Volume 9.1 fl (7.4-10.4); Monocytes Absolute Auto 0.8 K/mm3 (0.1-0.6); Monocytes Percent Auto 9.9 % (2.6-8.5); Neutrophils Absolute Auto 4.9 K/mm3 (1.3-6.7); Neutrophils Percent Auto 63.6 % (45.5-73.1); Platelet Count Result 403 k/mm3 (150-375); Red Blood Count 3.19 M/mm3 (4.2-5.4); Red Cell Distribution Width 13.2 % (11.5-14.5); White Blood Count 7.7 K/mm3 (4.5-10.0)
[2024-01-28 06:59] LABS: Alanine Aminotransferase 43 U/L (6-35); Albumin Level 3.1 g/dL (3.5-5.1); Alkaline Phosphatase 67 U/L (38-126); Anion Gap 7 mmol/L (4-12); Aspartate Amino Transferase 40 U/L (14-36); Bilirubin,Total 0.3 mg/dL (0.2-1.3); Blood Urea Nitrogen 13 mg/dL (7-17); Calcium 8.6 mg/dL (8.4-10.2); Carbon Dioxide 28 mmol/L (22-30); Chloride 101 mmol/L (98-107); Estimated CRCL calculation 33 ml/min; Estimated Glomerular Filt Rate 53; Glucose 105 mg/dL (65-110); Potassium 3.4 mmol/L (3.4-5.0); Sodium 136 mmol/L (137-145)
[2024-01-28] MEDS: SACCHAROMYCES BOULARDII 250 MG CAPSULE PO ×3 (08:13→16:37)
[2024-01-28] MEDS: LINEZOLID 600 MG TABLET PO ×2 (08:13→20:05)
[2024-01-28] MEDS: lisinopriL 20 MG TABLET PO (08:13)
[2024-01-28] MEDS: hydroCHLOROthiazide 12.5 MG CAPSULE PO (08:13)
[2024-01-28] MEDS: ENOXAPARIN 40 MG/0.4 ML SYRINGE SUB-Q (08:13)
[2024-01-28] MEDS: cefTRIAXone 2 GM/NS 100 ML 2 GM/100 ML BAG IVPB (08:13)
--- NOTE | 2024-01-28 10:47 | PM.IMPN ---
Progress Note: A&P Assessment and Plan (1) Cellulitis: Qualifiers: Laterality: right Site of cellulitis: extremity Site of cellulitis of extremity: lower extremity Qualified Code(s): L03.115 - Cellulitis of right lower limb Code(s): L03.90 - Cellulitis, unspecified Status: Acute Assessment and Plan: Cultures from wound grew out Group G Strep. Initial IV Abx changed to oral Linezolid and Augmentin after discussion with ID pharmacist. Restarted on Ceftriaxone with little to no improvement on PO abx. With slow progression of improvement, CT RLE done to r/o possible drainable abscess. CT RLE with no drainable abscess but showed Severe stenosis of the distal SFA without 85%. Venous dopplers nestor. LE negative for DVT. Progressive improvement in redness and pain noted with IV Ceftriaxone and Linezolid PO. No fevers and WBC's stable. Continue current abx therapy. 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 Further evaluation advised. - Nestor. LE venous duplex negative for DVT. - CTA abd/pelvis ordered. - Patient prefers to f/u with treatment at [facility] because his PCP works at [facility] in [place]. - Reports occasional episodes of numbness to RLE but attributes to aging. - Good pedal pulses 2+ bilaterally. - Continue to monitor closely. (3) Acute kidney injury: Code(s): N17.9 - Acute kidney failure, unspecified Status: Resolved Assessment and Plan: - Likely prerenal. - Resolved. - isinopril and hydrochlorothiazide restarted. - Avoid nephrotoxins. (4) Hypothyroidism: Code(s): E03.9 - Hypothyroidism, unspecified Status: Chronic Assessment and Plan: Stable. Continue home dose of Synthroid. (5) Hyperlipidemia: Code(s): E78.5 - Hyperlipidemia, unspecified Status: Chronic Assessment and Plan: - Stable. Continue statin therapy. (6) Hypertension: Code(s): I10 - Essential (primary) hypertension Status: Acute Assessment and Plan: - Well controlled. - Continue amlodipine, lisinopril and hctz. - review and stable- holding fpr now Plan Code Status: FULL-CODE. DVT PPx: Lovenox. Time Spent With Patient Time with patient: 25 - 35 minutes Subjective Date/time seen: 01/28/24 09:47 Interval history: Patient presented to the hospital with Right Lower leg redness and swelling that started with a small wound she sustained from her dog-leash. She was diagnosed with Right-lower leg cellullitis and was initially on oral Linezolid and Augmentin, but restarted on Ceftriaxone due to lack of improvement in symptoms. Patient's blood-cultures are NGTD, with wound cultures growing Group-G Streptococcus. Pt with much improvement in pain and redness but still with significant edema. Review of Systems Review of Systems: Minimal redness to RLE, significant edema RLE, moderate tenderness RLE, dry scabbed skin tear RLE All systems reviewed & are unremarkable except as noted in HPI and below Constitutional: Constitutional: Reports as per HPI, Reports no additional constitutional complaints and Reports chills Eyes: Eyes: Reports as per HPI, Reports no additional eye complaints and Denies change in vision ENT: Reports system reviewed and no additional complaints, except as documented, Reports as per HPI, Denies dysphagia and Denies odynophagia Cardiovascular: Cardiovascular: Reports as per HPI, Reports no additional cardiovascular complaints, Denies chest pain and Denies palpitations Respiratory: Respiratory: Reports as per HPI, Reports no additional respiratory complaints, Denies chest congestion and Denies cough Gastrointestinal: Gastrointestinal: Reports as per HPI, Reports no additional gastrointestina
[2024-01-28 15:21] VITALS: BP 139/56; PULSE 51; RESP 12; TEMP 36.5; O2SAT 99
[2024-01-28 20:04] VITALS: PULSE 72
[2024-01-28] MEDS: amLODIPine BESYLATE 5 MG TABLET PO (20:04)
[2024-01-28] MEDS: atenoloL 25 MG TABLET PO (20:04)
[2024-01-28] MEDS: ATORVASTATIN 40 MG TABLET PO (20:05)
[2024-01-28 21:22] VITALS: BP 150/59; PULSE 65; RESP 18; TEMP 36.2; O2SAT 99
[2024-01-29 06:00] VITALS: BP 144/51; PULSE 69; RESP 18; TEMP 36.3; O2SAT 99
[2024-01-29] MEDS: LEVOTHYROXINE SODIUM 50 MCG TABLET PO (06:26)
[2024-01-29 06:52] LABS: Basophils Absolute Auto 0.1 K/mm3 (0.0-0.1); Eosinophils Absolute Auto 0.2 K/mm3 (0-0.3); Eosinophils Percent Auto 2.1 % (0-4.4); Hematocrit 31.9 % (37.0-47.0); Hemoglobin 10.4 g/dL (12.0-15.0); Immature Granulocyte Absolute 0.04 K/mm3 (0.00-0.031); Immature Granulocyte Percent A 0.6 % (0-0.5); Lymphocytes Absolute Auto 1.61 K/mm3 (0.9-3.2); Lymphocytes Percent Auto 22.8 % (18.3-44.2); Mean Corpuscular HGB Conc 32.6 g/dl (32-36); Mean Corpuscular Hemoglobin 31.2 pg (26-34); Mean Corpuscular Volume 95.8 fl (80-100); Mean Platelet Volume 8.8 fl (7.4-10.4); Monocytes Absolute Auto 0.6 K/mm3 (0.1-0.6); Monocytes Percent Auto 8.2 % (2.6-8.5); Neutrophils Absolute Auto 4.6 K/mm3 (1.3-6.7); Neutrophils Percent Auto 65.3 % (45.5-73.1); Platelet Count Result 428 k/mm3 (150-375); Red Blood Count 3.33 M/mm3 (4.2-5.4); Red Cell Distribution Width 13.3 % (11.5-14.5); White Blood Count 7.1 K/mm3 (4.5-10.0)
[2024-01-29 07:03] LABS: Alanine Aminotransferase 40 U/L (6-35); Albumin Level 3.3 g/dL (3.5-5.1); Alkaline Phosphatase 68 U/L (38-126); Anion Gap 6 mmol/L (4-12); Aspartate Amino Transferase 36 U/L (14-36); Bilirubin,Total 0.4 mg/dL (0.2-1.3); Blood Urea Nitrogen 12 mg/dL (7-17); Calcium 8.8 mg/dL (8.4-10.2); Carbon Dioxide 30 mmol/L (22-30); Chloride 100 mmol/L (98-107); Estimated CRCL calculation 37 ml/min; Estimated Glomerular Filt Rate 60; Glucose 106 mg/dL (65-110); Potassium 3.6 mmol/L (3.4-5.0); Sodium 136 mmol/L (137-145)
[2024-01-29] MEDS: hydroCHLOROthiazide 12.5 MG CAPSULE PO (08:06)
[2024-01-29] MEDS: cefTRIAXone 2 GM/NS 100 ML 2 GM/100 ML BAG IVPB (08:06)
[2024-01-29] MEDS: ENOXAPARIN 40 MG/0.4 ML SYRINGE SUB-Q (08:06)
[2024-01-29] MEDS: LINEZOLID 600 MG TABLET PO (08:06)
[2024-01-29] MEDS: lisinopriL 20 MG TABLET PO (08:06)
[2024-01-29] MEDS: SACCHAROMYCES BOULARDII 250 MG CAPSULE PO ×2 (08:06→12:07)
[2024-01-29 14:00] VITALS: BP 168/53; PULSE 59; RESP 14; TEMP 36; O2SAT 99
--- NOTE | 2024-01-29 16:38 | PM.DS ---
DS: Admitting Diagnosis Discharge Date 01/29/24 Admitting Diagnosis Right LE Cellulitis DS: Discharge Diagnosis Discharge Diagnosis (1) Cellulitis: Qualifiers: Laterality: right Site of cellulitis: extremity Site of cellulitis of extremity: lower extremity Qualified Code(s): L03.115 - Cellulitis of right lower limb Code(s): L03.90 - Cellulitis, unspecified Status: Acute Assessment and Plan: Cultures from wound grew out Group G Strep. Initially was started on IV Vancomycin and Cefepime, but later changed to oral Linezolid and Augmentin after discussion with ID pharmacist. With no significant improvement in symptoms, patient was started on IV Ceftriaxone and continued on PO Linezolid. CT RLE done to r/o possible drainable abscess was negative for drainable abscess but showed Severe stenosis of the distal SFA without 85%. Venous dopplers nestor. LE were negative for DVT. Significant improvement in redness, edema and pain was noted with prior to discharge. No fevers and WBC's remained stable inpatient. 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 Further evaluation advised. - Nestor. LE venous duplex negative for DVT. - CTA abd/pelvis showed mild scattered nonhemodynamically significant atherosclerotic plaque in the normal caliber abdominal aorta and several remaining arteries in the abdomen, pelvis and proximal thighs. - Patient with no pain, numbness, decreased sensation prior to discharge, with pedal pulses remaining 2+ inpatient. (3) Acute kidney injury: Code(s): N17.9 - Acute kidney failure, unspecified Status: Resolved Assessment and Plan: - Resolved prior to discharge. (4) Hypothyroidism: Code(s): E03.9 - Hypothyroidism, unspecified Status: Chronic Assessment and Plan: Remained stable inpatient. Continued on home dose of Synthroid. (5) Hyperlipidemia: Code(s): E78.5 - Hyperlipidemia, unspecified Status: Chronic Assessment and Plan: - Remained stable. Continued on statin therapy. (6) Hypertension: Code(s): I10 - Essential (primary) hypertension Status: Acute Assessment and Plan: - Remained well controlled. - Continued on amlodipine, lisinopril and hctz. Plan Code Status: FULL-CODE. DS: Summary Hospital Course Reason for hospitalization: Right LE Cellulitis Hospital Course: Patient presented to the hospital with Right Lower leg redness and swelling that started with a small wound she sustained from her dog-leash. She was diagnosed with Right-lower leg cellullitis and was initially treated on Vancomycin and Cefepime that were changed to oral Linezolid and Augmentin. With no significant improvement in symptoms, patient was restarted on IV antibiotics Ceftriaxone and continued on Linezolid PO. Patient's blood-cultures were negative, with wound cultures growing Group-G Streptococcus. With significant improvement condition, patient was discharged to complete treatment with PO antibiotics. She had nestor. LE venous dopplers that were negative for DVT, CTA abd/pelvis also did not show any significant occlusion on the abdominal, pelvis and upper thighs arteries. No acute distress was noted or reported prior to discharge. Status at Discharge Functional status at discharge: independent ambulation Overall status at discharge: patient is progressing back to baseline Time Spent with Patient Time attestation: Total time spent providing and/or coordinating discharge services: Time spent: Greater than 30 minutes Exam Narrative: Constitutional: Pleasant elderly female, does not appear to be in any acute distress. HEENT: Head is normocephalic and atraumatic. MMM, clear oropharynx EYES: P
== END 2024-01-29 14:10 | disposition home or self-care (01) | DRG 603 ==
LOC: ANHED 01-20 05:39 → ANH3MEDSUR 01-20 06:11
PROVIDERS: Internal Medicine; Nurse Practitioner Acute Care; Physician Assistant; Admitting Provider Internal Medicine; Emergency Provider Emergency Medicine; PCP Internal Medicine; Visit Provider Nurse Practitioner Adult Health
DX: L03.115 Cellulitis of right lower limb (principal); N17.9 Acute kidney failure, unspecified; E87.1 Hypo-osmolality and hyponatremia; I10 Essential (primary) hypertension; I70.201 Unspecified atherosclerosis of native arteries of extremities, right leg; E87.6 Hypokalemia; E03.9 Hypothyroidism, unspecified; E78.5 Hyperlipidemia, unspecified; B95.1 Streptococcus, group B, as the cause of diseases classified elsewhere; Z87.891 Personal history of nicotine dependence
CPT/HCPCS: 36415; 73701; 74174; 80048; 80053; 83605; 83735; 85025; 85652; 86140; 87040; 87070; 87081; 87205; 93970; 96361; 96365; 97110; 97116; 97161; 97165; 97530; 97535; 99285; A9270; J0692; J0696; J1650; J3370; J7030; J7120; Q9967

== ENCOUNTER 2024-02-22 13:41 | Emergency (ER) | payer MEDICARE, SELFPAY ==
--- NOTE | ~2024-02-22 | CT_ITS ---
EXAMINATION: CTA brain carotid DATE: 02/22/2024 15:05 INDICATION: Weakness. TECHNIQUE: Computed tomographic angiography (CTA) of the head was performed without and with 100 mL O mnipaque-350 intravenous contrast. CTA of the neck was performed with intravenous contrast. Automated exposure control and iterative reconstruction technique were employed. The dose-length product was 1 604.93 mGy-cm. Maximum intensity projection and volume rendered 3D-reconstructions were created by miky adkins technologist on a separate workstation. COMPARISON: None. FINDINGS: HEAD CTA: There are scattered areas of low attenuation in the cerebral white matter. There is no intr acranial hemorrhage, acute infarction, or abnormal intracranial mass lesion. The ventricles are yas l in size. The mastoid air cells are normal. The paranasal sinuses are clear. There are likely change s of ocular lens replacement surgeries. The vertebral arteries are codominant. There is no significan t stenosis of basilar artery or the posterior cerebral arteries. There is no significant stenosis of intracranial internal carotid arteries or anterior or middle cerebral arteries. Anterior communicatin g artery is normal. The posterior communicating arteries are normal. There is no aneurysm. NECK CTA: There are no pathologically enlarged lymph nodes. There is no significant stenosis of the v ertebral arteries. There is plaque in the proximal internal carotid arteries. There is 33% stenosis o f the proximal right internal carotid artery relative to normal distal artery lumen diameter (NASCET criteria). There is 60% stenosis of the proximal left internal carotid artery relative to normal dist al artery lumen diameter. There is severe cervical spondylosis. IMPRESSION: 1. Moderate nonspecific cerebral white matter disease, which likely represents chronic small vessel i schemic disease. 2. No aneurysm or significant intracranial arterial stenosis. 3. 33% stenosis of the proximal right internal carotid artery relative to normal distal artery lumen diameter (NASCET criteria). 4. 60% stenosis of the proximal left internal carotid artery relative to normal distal artery lumen d iameter. Reviewed, dictated and finalized at location A. IMPRESSION: 1. Moderate nonspecific cerebral white matter disease, which likely represents chronic small vessel ischemic disease. 2. No aneurysm or significant intracranial arterial stenosis. 3. 33% stenosis of the proximal right internal carotid artery relative to yas l distal artery lumen diameter (NASCET criteria). 4. 60% stenosis of the proximal left internal carotid artery relative to normal distal artery lumen diameter.
--- NOTE | ~2024-02-22 | XR_ITS ---
XR chest 1V Ordering provider: Heidi Nieves PA-C History: 83 years Female with . weakness . Comparison: None. FINDINGS: MEDIASTINUM: The cardiac silhouette is slightly enlarged. Congestive duane. LUNGS: No effusions or pneumothorax. Opacification in the left lung bases suggestive of atelectasis v ersus. Interstitial changes seen bilaterally. OTHER: No free air under the diaphragm. IMPRESSION: Left basilar atelectasis versus pneumonia. Underlying pulmonary edema is not excluded. Clinical correlation advised. Reviewed, dictated and finalized at location A.
[2024-02-22 13:48] VITALS: BP 129/53; PULSE 70; RESP 16; TEMP 36.4; O2SAT 100
--- NOTE | 2024-02-22 14:47 | ECG_ITS ---
Test Date: 2024-02-22 16:23:54 Measurements Intervals [place] Rate: 66 P: 21 SD: 164 QRS: 1 QRSD: 85 T: 20 QT: 403 QTc: 425 Interpretive Statements SINUS RHYTHM BASELINE ARTIFACT- I, II, III, AVR, AVL, AVF, V1-V2 NORMAL ECG No previous ECG available for comparison Electronically Signed On 02-22-2024 16:26:21 CDT by Jae Honeycutt D.O.
--- NOTE | 2024-02-22 14:48 | ED.NEUROSD ---
HPI - Neuro Symptoms/Deficit General Chief Complaint: Neuro Symptoms/Deficit <Heidi Nieves PA-C - Last Filed: 02/22/24 18:09> Stated Complaint: Rt side weakness <Heidi Nieves PA-C - Last Filed: 02/22/24 18:09> Time Seen by Provider: 02/22/24 14:48 <Heidi Nieves PA-C - Last Filed: 02/22/24 18:09> Focused HPI: This is a 83 year old female that presents to the ER for right sided weakness. Reports ongoing since last night. Reports she woke up last night to use the restroom around 11:30 PM. She attempted to use the restroom and noticed she was having trouble walking. Today she has noted right arm weakness as well and has had difficulty talking. She thought her symptoms would improve on their own, when they didn't she called 911 for evaluation. GENERAL: Well-appearing, well-nourished, and in no acute distress. HEAD: Normocephalic, atraumatic. Facial asymmetry CHEST: Clear to auscultation. ?No respiratory distress. HEART: Regular rate and rhythm.? NEURO: ?Alert and oriented x3. Right arm weakness noted with drift Patient screened in triage and initial orders placed.? ?Additional care and disposition to be based upon?diagnostic testing and treatment. <Heidi Nieves PA-C - Last Filed: 02/22/24 18:09> History of Present Illness HPI Narrative: Agree with the HPI. Last known well 10:00 p.m. yesterday. Patient has slurred speech, mild right facial droop, weakness in the right arm as well as poor coordination right arm. No history of CVA. She is not on blood thinning medications. <Arvind Patton MD - Last Filed: 02/22/24 17:17> Related Data Home Medications: Home Medications Medication Instructions Recorded Confirmed amlodipine 5 mg tablet 5 mg PO HS 04/13/22 01/20/24 atenolol 25 mg tablet 25 mg PO HS 04/13/22 01/20/24 atorvastatin 40 mg tablet 40 mg PO HS 04/13/22 01/20/24 levothyroxine 50 mcg tablet 50 mcg PO DAILY 04/13/22 01/20/24 lisinopril 20 1 tablet PO DAILY 04/13/22 01/20/24 mg-hydrochlorothiazide 12.5 mg tablet <Heidi Nieves PA-C - Last Filed: 02/22/24 18:09> Allergies/Adverse Reactions: Allergies Allergy/AdvReac Type Severity Reaction Status Date / Time No Known Allergies Allergy Verified 01/19/24 20:16 <Heidi Nieves PA-C - Last Filed: 02/22/24 18:09> Review of Systems Review of Systems: All systems reviewed & are unremarkable except as noted in HPI and below <Arvind Patton MD - Last Filed: 02/22/24 17:17> Constitutional: Constitutional: Reports no additional constitutional complaints <Arvind Patton MD - Last Filed: 02/22/24 17:17> ENT: Reports system reviewed and no additional complaints, except as documented <Arvind Patton MD - Last Filed: 02/22/24 17:17> Cardiovascular: Cardiovascular: Reports no additional cardiovascular complaints <Arvind Patton MD - Last Filed: 02/22/24 17:17> Respiratory: Respiratory: Reports no additional respiratory complaints <Arvind Patton MD - Last Filed: 02/22/24 17:17> Musculoskeletal: Musculoskeletal: Reports no additional musculoskeletal complaints <Arvind Patton MD - Last Filed: 02/22/24 17:17> Neurologic: Denies syncope, Denies headache(s), Reports focal weakness and Denies numbness <Arvind Patton MD - Last Filed: 02/22/24 17:17> [facility] Past Medical History Medical History: Medical History (Updated 02/22/24 @ 15:42 by Arvind Patton MD) History of hyperlipidemia History of hypertension History of hypothyroidism <Heidi Nieves PA-C - Last Filed: 02/22/24 18:09> Social History Social History: Social History (Updated 01/19/24 @ 22:33 by Heidi Nieves PA-C) Smoking status: Former smoker Alcohol intake: current Drinks per week: 1 Substance use: never Do You Feel Safe in your Home?: Yes Lack of Transportation: YES Lack of Food: Never True Current Housing: I Have Housing Concerned About Future Housing: No Difficulty
[2024-02-22 15:42] LABS: Basophils Absolute Auto 0.1 K/mm3 (0.0-0.1); Basophils Percent Auto 0.6 % (0.2-1.2); Eosinophils Absolute Auto 0.1 K/mm3 (0-0.3); Eosinophils Percent Auto 0.9 % (0-4.4); Hematocrit 29.7 % (37.0-47.0); Hemoglobin 9.9 g/dL (12.0-15.0); Immature Granulocyte Absolute 0.03 K/mm3 (0.00-0.031); Immature Granulocyte Percent A 0.3 % (0-0.5); Lymphocytes Absolute Auto 1.62 K/mm3 (0.9-3.2); Lymphocytes Percent Auto 16.2 % (18.3-44.2); Mean Corpuscular HGB Conc 33.3 g/dl (32-36); Mean Corpuscular Volume 96.1 fl (80-100); Mean Platelet Volume 9.6 fl (7.4-10.4); Monocytes Absolute Auto 1.1 K/mm3 (0.1-0.6); Monocytes Percent Auto 10.5 % (2.6-8.5); Neutrophils Absolute Auto 7.2 K/mm3 (1.3-6.7); Neutrophils Percent Auto 71.5 % (45.5-73.1); Platelet Count Result 432 k/mm3 (150-375); Red Blood Count 3.09 M/mm3 (4.2-5.4); Red Cell Distribution Width 14.1 % (11.5-14.5)
[2024-02-22 15:53] LABS: Prothrombin Time 14.1 Seconds (11.1-14.7)
[2024-02-22 15:55] LABS: Partial Thromboplastin Time 26.1 Seconds (22.3-36.8)
[2024-02-22] MEDS: ASPIRIN 325 MG TABLET PO (15:57)
[2024-02-22] MEDS: CLOPIDOGREL BISULFATE 300 MG TABLET PO (15:57)
[2024-02-22 16:04] LABS: Alanine Aminotransferase 14 U/L (6-35); Albumin Level 3.9 g/dL (3.5-5.1); Alkaline Phosphatase 69 U/L (38-126); Anion Gap 11 mmol/L (4-12); Aspartate Amino Transferase 22 U/L (14-36); Bilirubin,Total 0.5 mg/dL (0.2-1.3); Blood Urea Nitrogen 24 mg/dL (7-17); Calcium 9.3 mg/dL (8.4-10.2); Carbon Dioxide 26 mmol/L (22-30); Chloride 100 mmol/L (98-107); Estimated CRCL calculation 36 ml/min; Estimated Glomerular Filt Rate 60; Glucose 105 mg/dL (65-110); Potassium 3.5 mmol/L (3.4-5.0); Sodium 137 mmol/L (137-145)
[2024-02-22 16:16] LABS: Troponin I < 0.012 ng/mL (0.000-0.034)
[2024-02-22 16:37] VITALS: BP 134/50; PULSE 79; RESP 15; O2SAT 99
--- NOTE | 2024-02-22 17:16 | PC.NURSE ---
pt seen ambulating with family members to waiting area. this RN and charge coordinator stopped pt and family. after speaking with EDP they state they are just going to drive over to [place]. educated pt and family on risks of leaving and benefits of staying in the hospital. family and pt very adamant about driving to [place] ED themselves. advised pt and family to return if they change their mind or have any new or worsening symptoms. IV removed w/ catheter intact. pt and family ambulated to ED parking area.
[2024-02-23 11:57] LABS: Estimated CRCL calculation 30 ml/min; Estimated Glomerular Filt Rate 47
== END 2024-02-22 17:27 | disposition left against medical advice (07) ==
PROVIDERS: Physician Assistant; Emergency Provider Emergency Medicine; PCP Internal Medicine
DX: I62.9 Nontraumatic intracranial hemorrhage, unspecified (principal); R29.704 NIHSS score 4; I10 Essential (primary) hypertension; E78.5 Hyperlipidemia, unspecified; E03.9 Hypothyroidism, unspecified; Z87.891 Personal history of nicotine dependence; R90.82 White matter disease, unspecified; I65.23 Occlusion and stenosis of bilateral carotid arteries
CPT/HCPCS: 36415; 70496; 70498; 71045; 80053; 82565; 84484; 85025; 85610; 85730; 93005; 99284; A9270; Q9967

== ENCOUNTER 2024-04-28 03:39 | Inpatient (IN) | payer MEDICARE, SELFPAY ==
--- NOTE | ~2024-04-28 | CT_ITS ---
CT of the Abdomen and Pelvis: Indication: Abdominal pain Technique: 2.5 mm axial scans were obtained through the abdomen and pelvis following intravenous adm inistration of 100 cc of Omnipaque 350. Dose reduction technique was used on this scan by utilizing a utomated exposure control and iterative reconstruction technique. The dose-length product (DLP) was 4 27.10 mGy-cm. COMPARISON: 01/28/2024 Findings: Scans through the lung bases are unremarkable. Multiple hepatic cysts are present. Stable cystic mass of the pancreatic body/proximal tail measuring 2.6 cm in diameter. The spleen, gallbladder, adrenals and kidneys are within normal limits. There ar e atherosclerotic calcifications of the aorta. No lymphadenopathy. There is extensive wall thickening of the large bowel especially, transverse colon and descending col on, and to a lesser extent, ascending colon. No valeriy bowel obstruction. Small bowel unremarkable. No abscess or free air. Images through the pelvis were performed. Urinary bladder unremarkable. No pelvic mass. No ascites. Impression: Findings compatible with extensive infectious/inflammatory colitis, as detailed above. 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 Reviewed, dictated and finalized at [facility]. [employer] Impression: Findings compatible with extensive infectious/inflammatory colitis, as detailed above. 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
[2024-04-28 03:44] VITALS: BP 139/64; PULSE 72; RESP 16; TEMP 36.4; O2SAT 99
[2024-04-28 04:57] LABS: Basophils Absolute Auto 0.1 K/mm3 (0.0-0.1); Basophils Percent Auto 0.3 % (0.2-1.2); Eosinophils Percent Auto 0.1 % (0-4.4); Hematocrit 34.7 % (37.0-47.0); Hemoglobin 11.3 g/dL (12.0-15.0); Immature Granulocyte Percent A 0.5 % (0-0.5); Lymphocytes Absolute Auto 0.38 K/mm3 (0.9-3.2); Mean Corpuscular HGB Conc 32.6 g/dl (32-36); Mean Corpuscular Hemoglobin 31.7 pg (26-34); Mean Corpuscular Volume 97.2 fl (80-100); Mean Platelet Volume 9.9 fl (7.4-10.4); Monocytes Absolute Auto 1.2 K/mm3 (0.1-0.6); Monocytes Percent Auto 6.3 % (2.6-8.5); Neutrophils Absolute Auto 17.6 K/mm3 (1.3-6.7); Neutrophils Percent Auto 90.8 % (45.5-73.1); Platelet Count Result 300 k/mm3 (150-375); Red Blood Count 3.57 M/mm3 (4.2-5.4); Red Cell Distribution Width 13.2 % (11.5-14.5); White Blood Count 19.4 K/mm3 (4.5-10.0)
[2024-04-28 05:06] LABS: Alanine Aminotransferase 16 U/L (6-35); Albumin Level 3.8 g/dL (3.5-5.1); Alkaline Phosphatase 142 U/L (38-126); Anion Gap 10 mmol/L (4-12); Aspartate Amino Transferase 27 U/L (14-36); Bilirubin,Total 0.6 mg/dL (0.2-1.3); Blood Urea Nitrogen 26 mg/dL (7-17); Calcium 8.9 mg/dL (8.4-10.2); Carbon Dioxide 23 mmol/L (22-30); Chloride 102 mmol/L (98-107); Estimated CRCL calculation 27 ml/min; Estimated Glomerular Filt Rate 43; Glucose 181 mg/dL (65-110); Lipase 88 U/L (23-300); Sodium 135 mmol/L (137-145)
[2024-04-28] MEDS: MORPHINE SULFATE (*CRX) 4 MG/ML INJ 2 MG IV PUSH ×2 (05:42→07:23)
[2024-04-28] MEDS: ONDANSETRON INJ 4 MG/2 ML VIAL IV PUSH (05:42)
[2024-04-28] MEDS: SODIUM CHLORIDE 0.9% IV 1,000 ML 999 ML IV CONT ×2 (05:43→12:46)
--- NOTE | 2024-04-28 06:06 | ED.GENADULT ---
HPI - General Adult General Chief complaint: Abdominal Pain <Abraham Araujo MD - Last Filed: 04/28/24 06:07> Stated complaint: ABD pain, n/v/d, rectal bleeding <Abraham Araujo MD - Last Filed: 04/28/24 06:07> Time Seen by Provider: 04/28/24 05:08 <Abraham Araujo MD - Last Filed: 04/28/24 06:07> Source: RN notes reviewed <Luda Carroll MD - Last Filed: 04/28/24 17:14> History of Present Illness HPI narrative: Patient 83-year-old female who presents emergency department chief complaint of abdominal pain. Patient reports that she has had some diarrhea and had some nausea and vomiting. Patient reports she has abdominal discomfort throughout her abdomen and reports that she had some bright red blood whenever she had a bowel movement with loose stool.. <Abraham Araujo MD - Last Filed: 04/28/24 06:07> Related Data Home medications: Home Medications Medication Instructions Recorded Confirmed amlodipine 5 mg tablet 10 mg PO HS 04/13/22 04/28/24 atenolol 25 mg tablet 25 mg PO HS 04/13/22 04/28/24 atorvastatin 40 mg tablet 80 mg PO HS 04/13/22 04/28/24 levothyroxine 50 mcg tablet 50 mcg PO DAILY 04/13/22 04/28/24 lisinopril 20 1 tablet PO DAILY 04/13/22 04/28/24 mg-hydrochlorothiazide 12.5 mg tablet clopidogrel 75 mg tablet 75 mg PO DAILY 04/28/24 04/28/24 <Abraham Araujo MD - Last Filed: 04/28/24 06:07> Allergies/adverse reactions: Allergies Allergy/AdvReac Type Severity Reaction Status Date / Time No Known Allergies Allergy Verified 04/28/24 03:47 <Abraham Araujo MD - Last Filed: 04/28/24 06:07> Review of Systems Review of Systems: A 10 system review of systems was completed on the patient and is negative except for what is stated in the HPI. Nursing and ancillary documentation was reviewed. <Abraham Araujo MD - Last Filed: 04/28/24 06:07> [facility] Past Medical History Medical History: Medical History History of hyperlipidemia History of hypertension History of hypothyroidism Stroke <Abraham Araujo MD - Last Filed: 04/28/24 06:07> Surgical History Surgical History: Surgical History History of tonsillectomy <Abraham Araujo MD - Last Filed: 04/28/24 06:07> Social History Social History: Social History (Updated 04/28/24 @ 12:46 by Fallon Rosa APRN) Social History: Patient lives at home alone with her dog. She is independent of ADLs. Smoking status: Former smoker Alcohol intake: current Drinks per week: 1 Substance use: never Do You Feel Safe in your Home?: Yes Lack of Transportation: YES Lack of Food: Never True Current Housing: I Have Housing Concerned About Future Housing: No Difficulty Paying Gas/Electric Bills: No Difficulty Paying for Meds: No Currently Unemployed: No Education: Master's Degree or Higher Difficulty w/ Childcare or Family Care: No Living arrangements: alone Spiritual care concerns: No <Abraham Araujo MD - Last Filed: 04/28/24 06:07> Exam Narrative: GENERAL: Well-appearing, well-nourished, and in no acute distress. HEAD: Normocephalic, atraumatic. EYES: PERRLA and EOMI. ENT: Nares clear, no rhinorrhea or epistaxis. Mucous membranes moist. NECK: Supple. CHEST: Clear to auscultation. No respiratory distress. HEART: Regular rate and rhythm. No murmur heard. Normal peripheral pulses. ABDOMEN: Soft, tenderness to palpation lower quadrants of the abdomen, nondistended, normal active bowel sounds. : Guaiac negative stool EXTREMITIES: Normal range of motion. No edema. SKIN: Warm, dry, no rash. NEURO: No focal deficits. Alert and oriented x3. PSYCH: Normal mood and affect. <Abraham Araujo MD - Last Filed: 04/28/24 06:07> Course Reevaluation(s) Reevaluation #1: I discussed with patient that CT shows colitis. I discussed plan to admit for antibiotics. She denies any rectal bleeding at this time. I spoke with hospitalist who accepts patient to medical floor on [facility]. She was found to have mild anemia. <Luda Carroll MD - Last Filed: 04/28/24 17:14> Date: 04/28/24 <Luda Carroll MD - Last Filed: 04/28/24 17:14> Time: 11:15 <Luda Carroll MD - Last Filed: 04/28/24 17:14> Consultations Consultation #1: I discussed case with Dr. Butcher. He states patient can be treated with antibiotics to hospitalist. If hospitalist needs her to be seen they can consult at that time. <Luda Carroll MD - Last Filed: 04/28/24 17:14> Date: 04/28/24 <Luda Carroll MD - Last Filed: 04/28/24 17:14> Time: 10:40 <Luda Carroll MD - Last Filed: 04/28/24 17:14> Vital Signs Vital signs: Vital Signs Temperature 97.6 F 04/28/24 03:44 Pulse Rate 72 04/28/24 03:44 Respiratory Rate 16 04/28/24 03:44 Blood Pressure 139/64 04/28/24 03:44 Pulse Oximetry 99 04/28/24 03:44 Oxygen Delivery Autopap 04/28/24 03:44 Temperature 97.6 F 04/28/24 14:00 Pulse Rate 66 04/28/24 14:00 Respiratory Rate 18 04/28/24 14:00 Blood Pressure 121/48 L 04/28/24 14:00 Pulse Oximetry 98 04/28/24 14:00 Oxygen Delivery Autopap 04/28/24 03:44 <Abraham Araujo MD - Last Filed: 04/28/24 06:07> Vital Signs Temperature 97.6 F 04/28/24 03:44 Pulse Rate 72 04/28/24 03:44 Respiratory Rate 16 04/28/24 03:44 Blood Pressure 139/64 04/28/24 03:44 Pulse Oximetry 99 04/28/24 03:44 Oxygen Delivery Autopap 04/28/24 03:44 Temperature 97.6 F 04/28/24 14:00 Pulse Rate 66 04/28/24 14:00 Respiratory Rate 18 04/28/24 14:00 Blood Pressure 121/48 L 04/28/24 14:00 Pulse Oximetry 98 04/28/24 14:00 Oxygen Delivery Autopap 04/28/24 03:44 <Luda Carroll MD - Last Filed: 04/28/24 17:14> Medical Decision Making Vital Signs Vital Signs: Vital Signs Temperature 97.6 F 04/28/24 03:44 Pulse Rate 72 04/28/24 03:44 Respiratory Rate 16 04/28/24 03:44 Blood Pressure 139/64 04/28/24 03:44 Pulse Oximetry 99 04/28/24 03:44 Oxygen Delivery Autopap 04/28/24 03:44 Temperature 97.6 F 04/28/24 14:00 Pulse Rate 66 04/28/24 14:00 Respiratory Rate 18 04/28/24 14:00 Blood Pressure 121/48 L 04/28/24 14:00 Pulse Oximetry 98 04/28/24 14:00 Oxygen Delivery Autopap 04/28/24 03:44 <Abraham Araujo MD - Last Filed: 04/28/24 06:07> Vital Signs Temperature 97.6 F 04/28/24 03:44 Pulse Rate 72 04/28/24 03:44 Respiratory Rate 16 04/28/24 03:44 Blood Pressure 139/64 04/28/24 03:44 Pulse Oximetry 99 04/28/24 03:44 Oxygen Delivery Autopap 04/28/24 03:44 Temperature 97.6 F 04/28/24 14:00 Pulse Rate 66 04/28/24 14:00 Respiratory Rate 18 04/28/24 14:00 Blood Pressure 121/48 L 04/28/24 14:00 Pulse Oximetry 98 04/28/24 14:00 Oxygen Delivery Autopap 04/28/24 03:44 <Luda Carroll MD - Last Filed: 04/28/24 17:14> Lab Data Result diagrams: 04/28/24 04:48 04/28/24 04:48 <Abraham Araujo MD - Last Filed: 04/28/24 06:07> Labs: Lab Results 04/28/24 04/28/24 04/28/24 Range/Units 04:48 06:35 10:05 WBC 19.4 H (4.5-10.0) K/mm3 RBC 3.57 L (4.2-5.4) M/mm3 Hgb 11.3 L (12.0-15.0) g/dL Hct 34.7 L (37.0-47.0) % MCV 97.2 (80-100) fl MCH 31.7 (26-34) pg MCHC 32.6 (32-36) g/dl RDW 13.2 (11.5-14.5) % Plt Count 300 (150-375) k/mm3 MPV 9.9 (7.4-10.4) fl Immature Gran % (Auto) 0.5 (0-0.5) % Neut % (Auto) 90.8 H (45.5-73.1) % Lymph % (Auto) 2.0 L (18.3-44.2) % [place] % (Auto) 6.3 (2.6-8.5) % Eos % (Auto) 0.1 (0-4.4) % Baso % (Auto) 0.3 (0.2-1.2) % Lymph # (Auto) 0.38 L (0.9-3.2) K/mm3 [place] # (Auto) 1.2 H (0.1-0.6) K/mm3 Eos # (Auto) 0.0 (0-0.3) K/mm3 Baso # (Auto) 0.1 (0.0-0.1) K/mm3 Abs Immat Gran (auto) 0.10 H (0.00-0.031) K/mm3 Absolute Neuts (auto) 17.6 H (1.3-6.7) K/mm3 Absolute Nucleated RBC 0.000 (0.0-0.012) K/mm3 Nucleated RBC % 0.0 (0.0-0.2) % Sodium 135 L (137-145) mmol/L Potassium 3.0 L (3.4-5.0) mmol/L Chloride 102 (98-107) mmol/L Carbon Dioxide 23 (22-30) mmol/L Anion Gap 10 (4-12) mmol/L BUN 26 H (7-17) mg/dL Creatinine 1.20 H (0.7-1.0) mg/dL Estim Creat Clear Calc 27 ml/min Estimated GFR 43 L (59 - ) Glucose 181 H (65-110) mg/dL Lactic Acid 2.9 H 1.3 (0.7-2.0) mmol/L Calcium 8.9 (8.4-10.2) mg/dL Magnesium 1.8 (1.6-2.3) mg/dL Total Bilirubin 0.6 (0.2-1.3) mg/dL AST 27 (14-36) U/L ALT 16 (6-35) U/L Alkaline Phosphatase 142 H (38-126) U/L Total Protein 7.0 (6.3-8.2) g/dL Albumin 3.8 (3.5-5.1) g/dL Lipase 88 (23-300) U/L Urine Color Yellow (Yellow) Urine Appearance Clear (Clear) Urine pH 6.5 (5.0-9.0) Ur Specific [place] 1.035 (1.001-1.035) Urine Protein Negative (Negative) mg/dL Urine Glucose (UA) Negative (Negative) mg/dL Urine Ketones Negative (Negative) mg/dL Ur Blood (Man) Negative (Negative) Urine Nitrate Negative (Negative) Urine Bilirubin Negative (Negative) Urine Urobilinogen 0.2 (<2.0) mg/dL Leukocyte Esterase Rfl Negative (Negative) SHAYY/UL <Abraham Araujo MD - Last Filed: 04/28/24 06:07> Lab Results 04/28/24 04/28/24 04/28/24 Range/Units 04:48 06:35 10:05 WBC 19.4 H (4.5-10.0) K/mm3 RBC 3.57 L (4.2-5.4) M/mm3 Hgb 11.3 L (12.0-15.0) g/dL Hct 34.7 L (37.0-47.0) % MCV 97.2 (80-100) fl MCH 31.7 (26-34) pg MCHC 32.6 (32-36) g/dl RDW 13.2 (11.5-14.5) % Plt Count 300 (150-375) k/mm3 MPV 9.9 (7.4-10.4) fl Immature Gran % (Auto) 0.5 (0-0.5) % Neut % (Auto) 90.8 H (45.5-73.1) % Lymph % (Auto) 2.0 L (18.3-44.2) % [place] % (Auto) 6.3 (2.6-8.5) % Eos % (Auto) 0.1 (0-4.4) % Baso % (Auto) 0.3 (0.2-1.2) % Lymph # (Auto) 0.38 L (0.9-3.2) K/mm3 [place] # (Auto) 1.2 H (0.1-0.6) K/mm3 Eos # (Auto) 0.0 (0-0.3) K/mm3 Baso # (Auto) 0.1 (0.0-0.1) K/mm3 Abs Immat Gran (auto) 0.10 H (0.00-0.031) K/mm3 Absolute Neuts (auto) 17.6 H (1.3-6.7) K/mm3 Absolute Nucleated RBC 0.000 (0.0-0.012) K/mm3 Nucleated RBC % 0.0 (0.0-0.2) % Sodium 135 L (137-145) mmol/L Potassium 3.0 L (3.4-5.0) mmol/L Chloride 102 (98-107) mmol/L Carbon Dioxide 23 (22-30) mmol/L Anion Gap 10 (4-12) mmol/L BUN 26 H (7-17) mg/dL Creatinine 1.20 H (0.7-1.0) mg/dL Estim Creat Clear Calc 27 ml/min Estimated GFR 43 L (59 - ) Glucose 181 H (65-110) mg/dL Lactic Acid 2.9 H 1.3 (0.7-2.0) mmol/L Calcium 8.9 (8.4-10.2) mg/dL Magnesium 1.8 (1.6-2.3) mg/dL Total Bilirubin 0.6 (0.2-1.3) mg/dL AST 27 (14-36) U/L ALT 16 (6-35) U/L Alkaline Phosphatase 142 H (38-126) U/L Total Protein 7.0 (6.3-8.2) g/dL Albumin 3.8 (3.5-5.1) g/dL Lipase 88 (23-300) U/L Urine Color Yellow (Yellow) Urine Appearance Clear (Clear) Urine pH 6.5 (5.0-9.0) Ur Specific [place] 1.035 (1.001-1.035) Urine Protein Negative (Negative) mg/dL Urine Glucose (UA) Negative (Negative) mg/dL Urine Ketones Negative (Negative) mg/dL Ur Blood (Man) Negative (Negative) Urine Nitrate Negative (Negative) Urine Bilirubin Negative (Negative) Urine Urobilinogen 0.2 (<2.0) mg/dL Leukocyte Esterase Rfl Negative (Negative) SHAYY/UL <Luda Carroll MD - Last Filed: 04/28/24 17:14> Discharge Plan Discharge Clinical Impression: Colitis <Abraham Araujo MD - Last Filed: 04/28/24 06:07> Patient Disposition: Still a Patient <Abraham Araujo MD - Last Filed: 04/28/24 06:07> Condition: Stable <Abraham Araujo MD - Last Filed: 04/28/24 06:07>
[2024-04-28 06:15] VITALS: BP 127/68; PULSE 69; RESP 14; O2SAT 93
[2024-04-28 06:55] LABS: Lactic Acid Reflex 2.9 mmol/L (0.7-2.0)
[2024-04-28 07:29] LABS: Add Urine Microscopic? NO; Appearance Urine Clear (Clear); Bilirubin Urine Negative (Negative); Blood Urine Negative (Negative); Color Urine Yellow (Yellow); Glucose Urine UA Negative (Negative); Ketones Urine Negative (Negative); Leukocyte Esterase Ur Negative LEU/UL (Negative); Nitrate Urine Negative (Negative); Protein Urine Negative (Negative); Specific Grav Ur 1.035 (1.001-1.035); Urobilinogen Urine 0.2 mg/dL (<2.0); pH Urine 6.5 (5.0-9.0)
[2024-04-28 09:41] LABS: Reflex Lactic Acid Yes or No Add Lactic
[2024-04-28 10:01] VITALS: BP 116/47; PULSE 65; RESP 18; O2SAT 97
[2024-04-28] MEDS: PIPERACILLIN/TAZ 2.25G/NS 50ML 2.25 GM/50 ML BAG IVPB ×2 (10:14→17:18)
[2024-04-28 10:24] LABS: Lactic Acid 1.3 mmol/L (0.7-2.0)
--- NOTE | 2024-04-28 11:47 | P.HP_ITS ---
H&P: HPI History of Present Illness Date/Time: 04/28/24 11:47 Chief Complaint: abdominal pain Narrative: This is a 83 year old with a past medical history of hypertension, dyslipidemia, hypothyroidism, recent CVA in February worked up at [place] with complaints of abdominal pain, diarrhea, nausea, vomiting, and bloody stool. She provides the following history with her son at the bedside. She states that last night around 2200 she laid down to bed and started to having abdominal pain to LUQ and LLQ with diarrhea and blood present when she wiped. She says she had some chicken Harris from [employer] for dinner. She denies fever but does report feelings of chills. She says she has been hospitalized for colitis once before back in 2019. In the ED labs were significant for WBC 19.4, hemoglobin 11.3, hematocrit 34.7, NS 135, K+ 3.0, BUN 26, Cr 1.20, lipase 88, and lactic 2.9. Urinalysis was unremarkable. 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 Blood cultures were obtained and patient was given 1 L NS in the ED and started on Zosyn for colitis. Repeat lactic was 1.3. VSS on admission were 129/53, heart rate 70, 97.6, RR 18, and pulse ox 100% on room air. She was admitted to the hospital in this setting for further IV hydration and IV antibiotics. Review of Systems Review of Systems: All systems reviewed & are unremarkable except as noted in HPI and below PMFSH Past Medical History Medical History History of hyperlipidemia History of hypertension History of hypothyroidism Stroke Surgical History Surgical History History of tonsillectomy Social History Social History (Updated 04/28/24 @ 12:46 by Fallon Rosa APRN) Social History: Patient lives at home alone with her dog. She is independent of ADLs. Smoking status: Former smoker Alcohol intake: current Drinks per week: 1 Substance use: never Do You Feel Safe in your Home?: Yes Lack of Transportation: YES Lack of Food: Never True Current Housing: I Have Housing Concerned About Future Housing: No Difficulty Paying Gas/Electric Bills: No Difficulty Paying for Meds: No Currently Unemployed: No Education: Master's Degree or Higher Difficulty w/ Childcare or Family Care: No Living arrangements: alone Spiritual care concerns: No Meds Home Medications and Allergies Home Medications Medication Instructions Recorded Confirmed Type amlodipine 5 mg tablet 5 mg PO HS 04/13/22 01/20/24 History atenolol 25 mg tablet 25 mg PO HS 04/13/22 01/20/24 History atorvastatin 40 mg tablet 40 mg PO HS 04/13/22 01/20/24 History levothyroxine 50 mcg tablet 50 mcg PO DAILY 04/13/22 01/20/24 History lisinopril 20 1 tablet PO DAILY 04/13/22 01/20/24 History mg-hydrochlorothiazide 12.5 mg tablet Saccharomyces boulardii 250 mg 250 mg PO BID #10 caps 01/29/24 Rx capsule (Daily Probiotic (S. boulardii)) amoxicillin 500 mg-potassium 1 tablet PO Q12H #8 tabs 01/29/24 Rx clavulanate 125 mg tablet (Augmentin) furosemide 20 mg tablet (Lasix) 20 mg PO DAILY #4 tabs 01/29/24 Rx linezolid 600 mg tablet 600 mg PO Q12H 4 days #9 tabs 01/29/24 Rx Allergies Allergy/AdvReac Type Severity Reaction Status Date / Time No Known Allergies Allergy Verified 04/28/24 03:47 Vital Signs Vital Signs - 24 hr 04/28/24 03:44 04/28/24 06:15 04/28/24 10:01 Temperature 97.6 F Pulse Rate 72 69 65 Respiratory Rate 16 14 18 Blood Pressure 139/64 127/68 116/47 L Pulse Oximetry 99 93 97 Oxygen Delivery Autopap Exam Narrative: General: appears comfortable, in no acute distress Respiratory: breathing is unlabored with even chest rise/fall, lungs are clear without wheezing, rhonchi, and crackles Cardiovascular: Rate and rhythm regular, normal s1s2, no murmur Abdomen: Soft, round, mild-moderate tenderness to LLQ, LUQ to palpation. Extremities: No cyanosis, trace dependent edema, no clubbing. Pulses 2/2 Neuro: A&O x 4 Skin: Warm, dry, intact H&P: Results Labs Labs: Short CBC 04/28/24 Range/Units 04:48 WBC 19.4 H (4.5-10.0) K/mm3 Hgb 11.3 L (12.0-15.0) g/dL Hct 34.7 L (37.0-47.0) % Plt Count 300 (150-375) k/mm3 BMP 04/28/24 04:48 Sodium 135 L Potassium 3.0 L Chloride 102 Carbon Dioxide 23 BUN 26 H Creatinine 1.20 H Glucose 181 H Calcium 8.9 Liver Function 04/28/24 Range/Units 04:48 Total Bilirubin 0.6 (0.2-1.3) mg/dL AST 27 (14-36) U/L ALT 16 (6-35) U/L Alkaline Phosphatase 142 H (38-126) U/L Albumin 3.8 (3.5-5.1) g/dL Urine 04/28/24 Range/Units 06:35 Urine Color Yellow (Yellow) Urine Appearance Clear (Clear) Urine pH 6.5 (5.0-9.0) Ur Specific [place] 1.035 (1.001-1.035) Urine Protein Negative (Negative) mg/dL Urine Glucose (UA) Negative (Negative) mg/dL Assessment and Plan Assessment and plan (1) Colitis: Code(s): K52.9 - Noninfective gastroenteritis and colitis, unspecified Status: Acute Assessment and Plan: Patient reports LUQ, LLQ abdominal pain with diarrhea with bloody stools, nausea, and vomiting since last night at [address] abdomen shows colitis. * WBC was 19.4, lactic 2.9, stable vital signs * Blood cultures drawn, started on zosyn * She received 1 L NS in the ED. Repeat lactis was 1.3. Will give an additional 1 L NS now and continue on maintenance fluids at 75 ml per hour. * Morphine as needed for pain, Zofran for nausea * Can continue with clear liquids (2) Acute kidney injury: Code(s): N17.9 - Acute kidney failure, unspecified Status: Resolved Assessment and Plan: Likely pre-renal from diarrhea. S/p 1 L NS in the ED. * repeat 1 L NS bolus. She feels dry. Started on maintenance fluids at 75 ml. * Repeat CMP in the am * K+ 3.0, add magnesium level * Replace with potassium 40 meq IVPB now. * Goal K+ > 3.5, Mg > 1.5 * intake, output (3) Hypertension: Code(s): I10 - Essential (primary) hypertension Status: Acute Assessment and Plan: Blood pressure are on the lower side of normal. Currently 116/47. Normally on lisinopril-hctz and amlodipine. * Holding her blood pressure medications for now given LUCY and low blood pressure. * monitor blood pressures Quality VTE Prophylaxis VTE prophylaxis: mechanical ordered Hospitalist MIPS Advance Care Plan I have confirmed that the patient's Advanced Care Plan is present, code status is documented, or surrogate decision maker is listed in patient medical record.: Yes Medication Reconciliation I have utilized all available resources to obtain, update and review the patients current medications (includes all prescriptions, OTC, herbals, cannabis, and nutritional supplements).: Yes
--- NOTE | 2024-04-28 12:30 | ADMGEN ---
This patient, Tequila Rubio, was admitted to [facility] Room 330-01. Patient/family oriented to hospital policies and general routines including ID bracelet, bed and alarms, visiting hours, pain management, procedures, bathroom and other care routines, personal items, smoking policy, room service/diet, and visiting hours. Information on how to activate the Rapid Response Team has been discussed. Patient/Family are encouraged to report perceived risks to care and to ask questions if they do not understand what they are told or what they should do.
[2024-04-28 12:33] VITALS: BMI 31.5
[2024-04-28] MEDS: SODIUM CHLORIDE 0.9% IV 1,000 ML 125 ML IV CONT (12:46)
[2024-04-28 13:34] LABS: Magnesium 1.8 mg/dL (1.6-2.3)
[2024-04-28] MEDS: POTASSIUM CHLORIDE INJ 40 MEQ in SODIUM CHLORIDE 0.9% IV 500 ML 130 MEQ IVPB (13:56)
[2024-04-28 14:00] VITALS: BP 121/48; PULSE 66; RESP 18; TEMP 36.4; O2SAT 98
[2024-04-28] MEDS: atenoloL 25 MG TABLET PO (20:48)
[2024-04-28] MEDS: ATORVASTATIN 40 MG TABLET 80 MG PO (20:48)
[2024-04-28 22:00] VITALS: BP 114/40; PULSE 63; RESP 18; TEMP 37.8; O2SAT 96
[2024-04-29] MEDS: PIPERACILLIN/TAZ 2.25G/NS 50ML 2.25 GM/50 ML BAG IVPB ×5 (00:32→23:23)
[2024-04-29] MEDS: LEVOTHYROXINE SODIUM 50 MCG TABLET PO (05:01)
[2024-04-29 05:55] VITALS: BP 109/44; PULSE 57; RESP 18; TEMP 36.9; O2SAT 95
--- NOTE | 2024-04-29 07:20 | P.PNIM_ITS ---
Progress Note: A&P Assessment and Plan (1) Colitis: Code(s): K52.9 - Noninfective gastroenteritis and colitis, unspecified Status: Acute Assessment and Plan: Patient reports LUQ, LLQ abdominal pain with diarrhea with bloody stools, nausea, and vomiting since last night at [address] abdomen shows colitis. * WBC was 19.4, lactic 2.9, stable vital signs * WBC downtrending. CRP ordered * Blood cultures drawn, started on zosyn * She received 1 L NS in the ED. Repeat lactis was 1.3. Will give an additional 1 L NS now and continue on maintenance fluids at 75 ml per hour. * Morphine as needed for pain, Zofran for nausea * Can continue with clear liquids. Advance diet as tolerated to low fiber. (2) Acute kidney injury: Code(s): N17.9 - Acute kidney failure, unspecified Status: Resolved Assessment and Plan: Likely pre-renal from diarrhea. S/p 1 L NS in the ED. * repeat 1 L NS bolus. She feels dry. Started on maintenance fluids at 75 ml. * Repeat CMP in the am * K+ 3.0, add magnesium level * Replace with potassium 40 meq IVPB now. * Goal K+ > 3.5, Mg > 1.5 * intake, output (3) Hypertension: Code(s): I10 - Essential (primary) hypertension Status: Acute Assessment and Plan: Blood pressure are on the lower side of normal. Currently 116/47. Normally on lisinopril-hctz and amlodipine. * Holding her blood pressure medications for now given LUCY and low blood pressure. * monitor blood pressures Subjective Date/time seen: 04/29/24 07:20 Interval history: No acute events overnight. 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 She is not nauseated but is still having diarrhea with some blood present. She is interested in trailing a diet. Review of Systems Review of Systems: All systems reviewed & are unremarkable except as noted in HPI and below Exam Narrative: General: appears comfortable, in no acute distress Respiratory: breathing is unlabored with even chest rise/fall, lungs are clear without wheezing, rhonchi, and crackles Cardiovascular: Rate and rhythm regular, normal s1s2, no murmur Abdomen: Soft, round, mild tenderness to LLQ, LUQ to palpation. Extremities: No cyanosis, trace dependent edema, no clubbing. Pulses 2/2 Neuro: A&O x 4 Skin: Warm, dry, intact Objective Data Vital Signs Vital Signs: Vital Signs - 24 hr 04/28/24 10:01 04/28/24 14:00 04/28/24 22:00 Temperature 97.6 F 100.1 F H Pulse Rate 65 66 63 Respiratory Rate 18 18 18 Blood Pressure 116/47 L 121/48 L 114/40 L Pulse Oximetry 97 98 96 04/29/24 05:55 Temperature 98.5 F Pulse Rate 57 L Respiratory Rate 18 Blood Pressure 109/44 L Pulse Oximetry 95 Intake/Output Intake/Output: Intake & Output 04/26/24 04/27/24 04/28/24 04/29/24 23:59 23:59 23:59 23:59 Intake Total 3034.9 300 Balance 3034.9 300 Meds/Results Medications: Active Medications Generic Name Dose Route Start Last Admin Trade Name Freq PRN Reason Stop Dose Admin Acetaminophen 650 mg 04/28/24 13:02 Acetaminophen 325 Mg Tablet PO Q4H PRN Mild Pain (1-3) or Fever Hydrocodone Bitart/Acetaminophen 1 tab 04/28/24 13:02 Hydrocodone/Acetaminophen (*Crx) 5-325 Mg Tablet PO Q4H PRN Moderate Pain (4-6) Aspirin 81 mg 04/29/24 09:00 Aspirin 81 Mg Enteric Tablet PO QAM FAUSTO Atenolol 25 mg 04/28/24 21:00 04/28/24 20:48 Atenolol 25 Mg Tablet PO 25 mg HS FAUSTO Administration Atorvastatin Calcium 80 mg 04/28/24 21:00 04/28/24 20:48 Atorvastatin 40 Mg Tablet PO 80 mg HS FAUSOT Administration Clopidogrel Bisulfate 75 mg 04/29/24 09:00 Clopidogrel Bisulfate 75 Mg Tablet PO DAILY FAUSTO Piperacillin Sod/Tazobactam Sod 2.25 gm in 50 mls @ 100 mls/hr 04/28/24 17:00 04/29/24 05:01 Zosyn 2.25 Gm/Ns 50 Ml IVPB 100 mls/hr Q6HR FAUSTO Administration Sodium Chloride 1,000 mls @ 75 mls/hr 04/28/24 11:05 04/28/24 13:57 Normal Saline Iv IV CONT 75 mls/hr .[id number] FAUSTO Infusion Levothyroxine Sodium 50 mcg 04/29/24 06:30 04/29/24 05:01 Levothyroxine Sodium 50 Mcg Tablet PO 50 mcg DAILY@0630 FAUSTO Administration Morphine Sulfate 2 mg 04/28/24 11:01 Morphine Sulfate (*Crx) 2 Mg/Ml Inj IV PUSH Q2H PRN Pain Rated 7-10 Ondansetron HCl 4 mg 04/28/24 11:01 Ondansetron Inj 4 Mg/2 Ml Vial IV PUSH Q4H PRN Nausea Radiology Results: ITS Impressions Abdomen/Pelvis CT 04/28/24 08:43 Impression: Findings compatible with extensive infectious/inflammatory colitis, as detailed above. 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 Labs Labs: Laboratory Results - last 24 hr 04/28/24 04/28/24 04/28/24 04:48 06:35 10:05 Lactic Acid 1.3 Magnesium 1.8 Urine Color Yellow Urine Appearance Clear Urine pH 6.5 Ur Specific [place] 1.035 Urine Protein Negative Urine Glucose (UA) Negative Urine Ketones Negative Ur Blood (Man) Negative Urine Nitrate Negative Urine Bilirubin Negative Urine Urobilinogen 0.2 Leukocyte Esterase Rfl Negative Quality VTE Prophylaxis VTE prophylaxis: mechanical ordered
[2024-04-29 07:32] LABS: Basophils Percent Auto 0.3 % (0.2-1.2); Eosinophils Absolute Auto 0.1 K/mm3 (0-0.3); Eosinophils Percent Auto 1.1 % (0-4.4); Hematocrit 26.6 % (37.0-47.0); Hemoglobin 8.7 g/dL (12.0-15.0); Immature Granulocyte Absolute 0.04 K/mm3 (0.00-0.031); Immature Granulocyte Percent A 0.4 % (0-0.5); Lymphocytes Absolute Auto 0.98 K/mm3 (0.9-3.2); Lymphocytes Percent Auto 9.7 % (18.3-44.2); Mean Corpuscular HGB Conc 32.7 g/dl (32-36); Mean Corpuscular Hemoglobin 32.2 pg (26-34); Mean Corpuscular Volume 98.5 fl (80-100); Mean Platelet Volume 10.2 fl (7.4-10.4); Monocytes Absolute Auto 0.7 K/mm3 (0.1-0.6); Monocytes Percent Auto 7.3 % (2.6-8.5); Neutrophils Absolute Auto 8.2 K/mm3 (1.3-6.7); Neutrophils Percent Auto 81.2 % (45.5-73.1); Platelet Count Result 230 k/mm3 (150-375); Red Cell Distribution Width 13.9 % (11.5-14.5); White Blood Count 10.1 K/mm3 (4.5-10.0)
[2024-04-29 07:45] LABS: Alanine Aminotransferase 12 U/L (6-35); Albumin Level 2.9 g/dL (3.5-5.1); Alkaline Phosphatase 83 U/L (38-126); Anion Gap 7 mmol/L (4-12); Aspartate Amino Transferase 33 U/L (14-36); Bilirubin,Total 0.7 mg/dL (0.2-1.3); Blood Urea Nitrogen 19 mg/dL (7-17); Calcium 7.5 mg/dL (8.4-10.2); Carbon Dioxide 21 mmol/L (22-30); Chloride 107 mmol/L (98-107); Estimated CRCL calculation 30 ml/min; Estimated Glomerular Filt Rate 47; Glucose 111 mg/dL (65-110); Magnesium 1.8 mg/dL (1.6-2.3); Potassium 3.6 mmol/L (3.4-5.0); Sodium 135 mmol/L (137-145)
[2024-04-29] MEDS: ASPIRIN 81 MG ENTERIC TABLET PO (08:34)
[2024-04-29 14:00] VITALS: BP 133/49; PULSE 56; RESP 20; TEMP 36.8; O2SAT 97
[2024-04-29 18:06] LABS: Iron 27 ug/dL (37-170)
[2024-04-29 18:15] LABS: Percent Iron Saturation 13 % (20-50)
[2024-04-29 19:13] LABS: Folic Acid 14.6 ng/mL (2.76->20)
[2024-04-29 20:00] VITALS: PULSE 66; RESP 18; O2SAT 95
[2024-04-29 20:44] VITALS: PULSE 66
[2024-04-29] MEDS: ATORVASTATIN 40 MG TABLET 80 MG PO (20:44)
[2024-04-29] MEDS: atenoloL 25 MG TABLET PO (20:44)
[2024-04-29 21:09] VITALS: BP 96/40; PULSE 66; RESP 18; TEMP 36.6; O2SAT 95
[2024-04-29] MEDS: SODIUM CHLORIDE 0.9% IV 1,000 ML 75 ML IV CONT (23:23)
[2024-04-30] MEDS: PIPERACILLIN/TAZ 2.25G/NS 50ML 2.25 GM/50 ML BAG IVPB (05:25)
[2024-04-30] MEDS: LEVOTHYROXINE SODIUM 50 MCG TABLET PO (05:25)
[2024-04-30 05:31] VITALS: PULSE 61; RESP 18; TEMP 36.4; O2SAT 94
[2024-04-30 06:53] LABS: Basophils Absolute Auto 0.1 K/mm3 (0.0-0.1); Basophils Percent Auto 0.9 % (0.2-1.2); Eosinophils Absolute Auto 0.3 K/mm3 (0-0.3); Hematocrit 31.8 % (37.0-47.0); Hemoglobin 9.9 g/dL (12.0-15.0); Immature Granulocyte Absolute 0.03 K/mm3 (0.00-0.031); Immature Granulocyte Percent A 0.4 % (0-0.5); Lymphocytes Absolute Auto 1.33 K/mm3 (0.9-3.2); Lymphocytes Percent Auto 16.6 % (18.3-44.2); Mean Corpuscular HGB Conc 31.1 g/dl (32-36); Mean Corpuscular Hemoglobin 31.5 pg (26-34); Mean Corpuscular Volume 101.3 fl (80-100); Monocytes Absolute Auto 0.7 K/mm3 (0.1-0.6); Monocytes Percent Auto 8.7 % (2.6-8.5); Neutrophils Absolute Auto 5.6 K/mm3 (1.3-6.7); Neutrophils Percent Auto 69.4 % (45.5-73.1); Platelet Count Result 262 k/mm3 (150-375); Red Blood Count 3.14 M/mm3 (4.2-5.4); Red Cell Distribution Width 13.8 % (11.5-14.5)
[2024-04-30 07:09] LABS: Alanine Aminotransferase 16 U/L (6-35); Albumin Level 3.5 g/dL (3.5-5.1); Alkaline Phosphatase 91 U/L (38-126); Anion Gap 6 mmol/L (4-12); Aspartate Amino Transferase 38 U/L (14-36); Bilirubin,Total 0.6 mg/dL (0.2-1.3); Blood Urea Nitrogen 11 mg/dL (7-17); Calcium 8.4 mg/dL (8.4-10.2); Carbon Dioxide 24 mmol/L (22-30); Chloride 112 mmol/L (98-107); Estimated CRCL calculation 32 ml/min; Estimated Glomerular Filt Rate 53; Glucose 111 mg/dL (65-110); Potassium 3.7 mmol/L (3.4-5.0); Sodium 142 mmol/L (137-145)
[2024-04-30 07:11] LABS: CRP 4.7 mg/dL (<1.0)
[2024-04-30] MEDS: ASPIRIN 81 MG ENTERIC TABLET PO (08:04)
--- NOTE | 2024-04-30 12:52 | P.PNIM_ITS ---
Progress Note: A&P Assessment and Plan (1) Colitis: Code(s): K52.9 - Noninfective gastroenteritis and colitis, unspecified Status: Acute Assessment and Plan: Patient reports LUQ, LLQ abdominal pain with diarrhea with bloody stools, nausea, and vomiting since last night at [address] abdomen shows colitis. * WBC was 19.4, lactic 2.9, stable vital signs * WBC downtrending. CRP ordered * Blood cultures drawn, started on zosyn * She received 1 L NS in the ED. Repeat lactis was 1.3. Will give an additional 1 L NS now and continue on maintenance fluids at 75 ml per hour. Stopping IV fluids today. Advance diet to low fiber. If she tolerates diet today without increased pain, nausea or vomiting then she can d/c tomorrow. * Transitioned antibiotics to oral agents for a total of 10 days treatment (Augmentin and Flagyl). * Morphine as needed for pain, Zofran for nausea * Tylenol and Bentyl for pain (2) Acute kidney injury: Code(s): N17.9 - Acute kidney failure, unspecified Status: Resolved Assessment and Plan: Likely pre-renal from diarrhea. S/p 1 L NS in the ED. * repeat 1 L NS bolus. She feels dry. Started on maintenance fluids at 75 ml. * Repeat CMP in the am * K+ 3.0, add magnesium level * Replace with potassium 40 meq IVPB now. * Goal K+ > 3.5, Mg > 1.5 * intake, output RESOLVED. (3) Hypertension: Code(s): I10 - Essential (primary) hypertension Status: Acute Assessment and Plan: Blood pressure are on the lower side of normal. Currently 116/47. Normally on lisinopril-hctz and amlodipine. * Holding her blood pressure medications for now given LUCY and low blood pressure. * monitor blood pressures Plan Advanced diet today. Likely discharge home tomorrow. Subjective Date/time seen: 04/30/24 12:52 Interval history: No acute events overnight. She is taking in better oral intake. Diarrhea is less. She had some abdominal cramping yesterday. Will advance her diet today. Review of Systems Review of Systems: All systems reviewed & are unremarkable except as noted in HPI and below Exam Narrative: General: appears comfortable, in no acute distress Respiratory: breathing is unlabored with even chest rise/fall, lungs are clear without wheezing, rhonchi, and crackles Cardiovascular: Rate and rhythm regular, normal s1s2, no murmur Abdomen: Soft, round, mild tenderness to LLQ, LUQ to palpation. Extremities: No cyanosis, trace dependent edema, no clubbing. Pulses 2/2 Neuro: A&O x 4 Skin: Warm, dry, intact Objective Data Vital Signs Vital Signs: Vital Signs - 24 hr 04/29/24 14:00 04/29/24 20:44 04/29/24 21:09 Temperature 98.2 F 97.8 F Pulse Rate 56 L 66 66 Respiratory Rate 20 18 Blood Pressure 133/49 L 96/40 L Pulse Oximetry 97 95 Oxygen Delivery 04/29/24 20:00 04/30/24 05:31 Temperature 97.5 F L Pulse Rate 66 61 Respiratory Rate 18 18 Blood Pressure Pulse Oximetry 95 94 Oxygen Delivery Room Air Intake/Output Intake/Output: Intake & Output 04/27/24 04/28/24 04/29/24 04/30/24 23:59 23:59 23:59 23:59 Intake Total 3034.9 1832.1 440 Balance 3034.9 1832.1 440 Meds/Results Medications: Active Medications Generic Name Dose Route Start Last Admin Trade Name Freq PRN Reason Stop Dose Admin Acetaminophen 650 mg 04/28/24 13:02 Acetaminophen 325 Mg Tablet PO Q4H PRN Mild Pain (1-3) or Fever Hydrocodone Bitart/Acetaminophen 1 tab 04/28/24 13:02 Hydrocodone/Acetaminophen (*Crx) 5-325 Mg Tablet PO Q4H PRN Moderate Pain (4-6) Aspirin 81 mg 04/29/24 09:00 04/30/24 08:04 Aspirin 81 Mg Enteric Tablet PO 81 mg QAM FAUSTO Administration Atenolol 25 mg 04/28/24 21:00 04/29/24 20:44 Atenolol 25 Mg Tablet PO 25 mg HS FAUSTO Administration Atorvastatin Calcium 80 mg 04/28/24 21:00 04/29/24 20:44 Atorvastatin 40 Mg Tablet PO 80 mg HS FAUSTO Administration Clopidogrel Bisulfate 75 mg 04/29/24 09:00 Clopidogrel Bisulfate 75 Mg Tablet PO DAILY FAUSTO Piperacillin Sod/Tazobactam Sod 2.25 gm in 50 mls @ 100 mls/hr 04/28/24 17:00 04/30/24 05:25 Zosyn 2.25 Gm/Ns 50 Ml IVPB 100 mls/hr Q6HR FAUSTO Administration Sodium Chloride 1,000 mls @ 75 mls/hr 04/28/24 11:05 04/29/24 23:23 Normal Saline Iv IV CONT 75 mls/hr .[id number] FAUSTO Administration Levothyroxine Sodium 50 mcg 04/29/24 06:30 04/30/24 05:25 Levothyroxine Sodium 50 Mcg Tablet PO 50 mcg DAILY@0630 FAUSTO Administration Morphine Sulfate 2 mg 04/28/24 11:01 Morphine Sulfate (*Crx) 2 Mg/Ml Inj IV PUSH Q2H PRN Pain Rated 7-10 Ondansetron HCl 4 mg 04/28/24 11:01 Ondansetron Inj 4 Mg/2 Ml Vial IV PUSH Q4H PRN Nausea Radiology Results: ITS Impressions Abdomen/Pelvis CT 04/28/24 08:43 Impression: Findings compatible with extensive infectious/inflammatory colitis, as detailed above. 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 Labs Labs: Laboratory Results - last 24 hr 04/29/24 04/30/24 07:15 06:46 WBC 8.0 RBC 3.14 L Hgb 9.9 L Hct 31.8 L MCV 101.3 H MCH 31.5 MCHC 31.1 L RDW 13.8 Plt Count 262 MPV 10.0 Immature Gran % (Auto) 0.4 Neut % (Auto) 69.4 Lymph % (Auto) 16.6 L [place] % (Auto) 8.7 H Eos % (Auto) 4.0 Baso % (Auto) 0.9 Lymph # (Auto) 1.33 [place] # (Auto) 0.7 H Eos # (Auto) 0.3 Baso # (Auto) 0.1 Abs Immat Gran (auto) 0.03 Absolute Neuts (auto) 5.6 Absolute Nucleated RBC 0.000 Nucleated RBC % 0.0 Sodium 142 Potassium 3.7 Chloride 112 H Carbon Dioxide 24 Anion Gap 6 BUN 11 D Creatinine 1.00 Estim Creat Clear Calc 32 Estimated GFR 53 L Glucose 111 H Calcium 8.4 Magnesium 2.0 Iron 27 L TIBC 211 L % Saturation 13 L Total Bilirubin 0.6 AST 38 H ALT 16 Alkaline Phosphatase 91 C-Reactive Protein 4.7 H Total Protein 7.0 Albumin 3.5 Vitamin B12 425.0 Folate 14.6 Quality VTE Prophylaxis VTE prophylaxis: mechanical ordered
[2024-04-30] MEDS: metroNIDAZOLE 500 MG TABLET PO ×2 (13:38→20:51)
[2024-04-30 14:00] VITALS: BP 140/58; PULSE 56; RESP 18; TEMP 35.8; O2SAT 97
[2024-04-30 20:49] VITALS: BP 157/60; PULSE 59; RESP 16; TEMP 36.7; O2SAT 99
[2024-04-30] MEDS: atenoloL 25 MG TABLET PO (20:51)
[2024-04-30] MEDS: AMOXICILLIN/CLAVULANATE K 875-125 MG TAB 1 TABLET PO (20:51)
[2024-04-30] MEDS: ATORVASTATIN 40 MG TABLET 80 MG PO (20:52)
[2024-05-01 05:25] VITALS: BP 151/53; PULSE 61; RESP 14; TEMP 36.9; O2SAT 96
[2024-05-01] MEDS: LEVOTHYROXINE SODIUM 50 MCG TABLET PO (05:44)
[2024-05-01] MEDS: metroNIDAZOLE 500 MG TABLET PO ×2 (05:44→13:02)
[2024-05-01 06:51] LABS: Basophils Absolute Auto 0.1 K/mm3 (0.0-0.1); Basophils Percent Auto 0.9 % (0.2-1.2); Eosinophils Absolute Auto 0.3 K/mm3 (0-0.3); Eosinophils Percent Auto 2.9 % (0-4.4); Hematocrit 35.3 % (37.0-47.0); Hemoglobin 11.3 g/dL (12.0-15.0); Immature Granulocyte Absolute 0.05 K/mm3 (0.00-0.031); Immature Granulocyte Percent A 0.5 % (0-0.5); Lymphocytes Absolute Auto 1.33 K/mm3 (0.9-3.2); Lymphocytes Percent Auto 12.5 % (18.3-44.2); Mean Corpuscular Hemoglobin 31.6 pg (26-34); Mean Corpuscular Volume 98.6 fl (80-100); Mean Platelet Volume 10.3 fl (7.4-10.4); Monocytes Absolute Auto 0.6 K/mm3 (0.1-0.6); Monocytes Percent Auto 5.8 % (2.6-8.5); Neutrophils Absolute Auto 8.3 K/mm3 (1.3-6.7); Neutrophils Percent Auto 77.4 % (45.5-73.1); Platelet Count Result 333 k/mm3 (150-375); Red Blood Count 3.58 M/mm3 (4.2-5.4); Red Cell Distribution Width 13.4 % (11.5-14.5); White Blood Count 10.7 K/mm3 (4.5-10.0)
[2024-05-01 07:05] LABS: Alanine Aminotransferase 19 U/L (6-35); Alkaline Phosphatase 100 U/L (38-126); Anion Gap 7 mmol/L (4-12); Aspartate Amino Transferase 39 U/L (14-36); Bilirubin,Total 0.7 mg/dL (0.2-1.3); Blood Urea Nitrogen 6 mg/dL (7-17); Calcium 9.1 mg/dL (8.4-10.2); Carbon Dioxide 27 mmol/L (22-30); Chloride 104 mmol/L (98-107); Estimated CRCL calculation 40 ml/min; Estimated Glomerular Filt Rate > 60; Glucose 110 mg/dL (65-110); Magnesium 1.7 mg/dL (1.6-2.3); Potassium 3.3 mmol/L (3.4-5.0); Sodium 138 mmol/L (137-145)
[2024-05-01] MEDS: AMOXICILLIN/CLAVULANATE K 875-125 MG TAB 1 TABLET PO (08:13)
[2024-05-01] MEDS: ASPIRIN 81 MG ENTERIC TABLET PO (08:13)
[2024-05-01] MEDS: POTASSIUM CHLORIDE 20 MEQ ER TABLET 40 MEQ PO (08:53)
--- NOTE | 2024-05-01 13:26 | P.DS_ITS ---
DS: Admitting Diagnosis Discharge Date 05/01/2024 Admitting Diagnosis Diverticulitis DS: Discharge Diagnosis Discharge Diagnosis (1) Colitis: Code(s): K52.9 - Noninfective gastroenteritis and colitis, unspecified Status: Acute (2) Acute kidney injury: Code(s): N17.9 - Acute kidney failure, unspecified Status: Resolved (3) Hypertension: Code(s): I10 - Essential (primary) hypertension Status: Acute Plan Disposition: Discharged home DS: Summary Hospital Course Reason for hospitalization: Diverticulitis Hospital Course: This was 83 year old with a past medical history of hypertension, dyslipidemia, hypothyroidism, 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 Patient was admitted for treatment of colititis Initially in the ED labs were significant for WBC 19.4, hemoglobin 11.3, hematocrit 34.7, NS 135, K+ 3.0, BUN 26, Cr 1.20, lipase 88, and lactic 2.9. Urinalysis was unremarkable. 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 Blood cultures were obtained and patient was given 1 L NS in the ED and started on Z osyn for colitis. Repeat lactic was 1.3. Patient had been started on IV fluids, IV antibiotics and bowel rest. I slowly advanced patient diet as tolerated. Patient leukocytosis improved ABX coverage and she was able to tolerate oral intake with minimal ABD discomfort. She had overall improvement of symptoms and was transitioned to oral ABX with labs and vitals stable upon discharge. I did recommend follow-up GI in 6 weeks once infectious process had resolved for possible colonoscopy. Status at Discharge Functional status at discharge: independent ambulation Overall status at discharge: patient is progressing back to baseline Time Spent with Patient Time attestation: Total time spent providing and/or coordinating discharge services: Time spent: Greater than 30 minutes Exam Narrative: General: appears comfortable, in no acute distress Respiratory: breathing is unlabored with even chest rise/fall, lungs are clear without wheezing, rhonchi, and crackles Cardiovascular: Rate and rhythm regular, normal s1s2, no murmur Abdomen: Soft, round, mild tenderness to LLQ, LUQ to palpation. Extremities: No cyanosis, trace dependent edema, no clubbing. Pulses 2/2 Neuro: A&O x 4 Skin: Warm, dry, intact DS: Data Data Completed and Pending Labs on day of discharge: Labs from last 24 hours 05/01/24 06:08 WBC 10.7 H RBC 3.58 L Hgb 11.3 L Hct 35.3 L MCV 98.6 MCH 31.6 MCHC 32.0 RDW 13.4 Plt Count 333 MPV 10.3 Immature Gran % (Auto) 0.5 Neut % (Auto) 77.4 H Lymph % (Auto) 12.5 L [place] % (Auto) 5.8 Eos % (Auto) 2.9 Baso % (Auto) 0.9 Lymph # (Auto) 1.33 [place] # (Auto) 0.6 Eos # (Auto) 0.3 Baso # (Auto) 0.1 Abs Immat Gran (auto) 0.05 H Absolute Neuts (auto) 8.3 H Absolute Nucleated RBC 0.000 Nucleated RBC % 0.0 Sodium 138 Potassium 3.3 L Chloride 104 Carbon Dioxide 27 Anion Gap 7 BUN 6 L D Creatinine 0.80 Estim Creat Clear Calc 40 Estimated GFR > 60 Glucose 110 Calcium 9.1 Magnesium 1.7 Total Bilirubin 0.7 AST 39 H ALT 19 Alkaline Phosphatase 100 Total Protein 7.0 Albumin 4.0 Preliminary micro results at discharge 04/28/24 10:05 Blood Culture - Preliminary Blood 04/28/24 10:05 Blood Culture - Preliminary Blood Imaging Radiologist's impression: Radiology Results: ITS Impressions Abdomen/Pelvis CT 04/28/24 08:43 Impression: Findings compatible with extensive infectious/inflammatory colitis, as detailed above. 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 Discharge Plan Discharge Attending physician on discharge: Abraham Ragland Consulting providers: Fallon Rosa; Abraham Araujo; Pako Reich Discharging Clinician: Makayla Barnes Anticipated Discharge Date/Time: 05/01/24 13:20 Patient Disposition: Home, Self-Care Activity: october show Diet: low fiber Discharge Instructions: You were admitted with abdominal pain, diarrhea, nausea, and vomiting. CT showed colitis. We treated you with IV antibiotics and IV fluids. Your white blood cell count improved as well as your abdominal pain. We were able to advance your diet. You will discharge home on Augmentin and Flagyl for a total of 10 days of treatment. You can continue a low-fiber diet over the next week. Once your feeling back to her baseline you can resume her normal diet. Please monitor for fever greater than 101.4, recurrent abdominal pain, nausea, vomiting, or increased bloody diarrhea. Should you experience any of the symptoms please return to the emergency room or contact your primary care provider for further instruction. I would recommend follow-up with primary care and referral to GI for outpatient colonoscopy once infectious process is resolved 6- 8 weeks. How can you care for yourself at home? ? Keep track of any new symptoms or changes in your symptoms. ? Rest until you feel better. ? Be safe with medicines. Take your medicines exactly as prescribed. Call your doctor if you think you are having a problem with your medicine. ? Do not drive after taking a prescription pain medicine. ? Ensure to follow-up with primary care physician as indicated and provide updated medication list provided to you at discharge. When should you call for help? Call 911 anytime you think you may need emergency care. For example, call if: ? You passed out (lost consciousness). Call your doctor now or seek immediate medical care if: ? You have new symptoms like fever, difficulty breathing, Chest pain, vomiting, or rash. ? You have new or different pain. ? You are confused and are having trouble thinking clearly. ? Your symptoms are getting worse. Watch closely for changes in your health, and be sure to contact your doctor if: ? You do not get better as expected. Patient Instructions: Antibiotic Form, Clopidogrel (By mouth), Low Fiber Diet (DC), Diverticulitis Diet (DC), Colitis (ED), Blood Thinners (GEN) Patient Language: Grenadian Stand Alone Forms: General Discharge Information Follow-up/Referrals: Linda,Junior Hobbs MD [Primary Care Provider] - Discharge Medications: New metronidazole 500 mg Tablet 500 mg PO Q8HR 8 Days Qty: 24 0RF aspirin 81 mg Tablet,Delayed Release (Dr/Ec) 81 mg PO QAM Qty: 30 0RF amoxicillin-pot clavulanate 875-125 mg tablet 1 tablet PO Q12H 8 Days Qty: 16 0RF Continued atorvastatin 40 mg tablet 80 mg PO HS lisinopril-hydrochlorothiazide 20-12.5 mg tablet 1 tablet PO DAILY atenolol 25 mg tablet 25 mg PO HS amlodipine 5 mg tablet 10 mg PO HS levothyroxine 50 mcg tablet 50 mcg PO DAILY Saccharomyces boulardii [Daily Probiotic (S. boulardii)] 250 mg capsule 250 mg PO BID Qty: 10 0RF clopidogrel 75 mg tablet 75 mg PO DAILY Date of admission: 04/28/24 11:02 Primary Care Provider: Linda,Junior Hobbs Admitting Provider: Dalton Mackey Attending physician on admission: Makayla Barnes Condition: Stable Quality VTE Prophylaxis VTE prophylaxis: mechanical ordered -Patient's previous records reviewed on admission -ER notes reviewed in detail on admission -discussed all findings and current treatment plan with patient/Family/POA -Consultations reviewed for recommendations -Patient's disposition for safe discharge discussed with correctional case manager Dictation performed by [employer] direct speech recognition software, therefore electrical estimator variants and typographical errors may occur. Hospitalist MIPS Heart Failure (Exclusion) Patient has history of Heart Transplant or Left Ventricular Assistive Device?: No IF YES, STOP HERE Heart Failure (Qualifier) Patient has current or prior documentation of LVEF less than or equal to 40%, or mod/servere depressed LVSF?: No IF NO, STOP HERE
[2024-05-01 14:00] VITALS: BP 153/56; PULSE 96; RESP 18; TEMP 36.4; O2SAT 98
== END 2024-05-01 15:55 | disposition home or self-care (01) | DRG 392 ==
LOC: ANHED 05:58 → ANH3MEDSUR 11:33
PROVIDERS: Emergency Medicine; Nurse Practitioner Acute Care; Admitting Provider Internal Medicine; Emergency Provider General Practice; PCP Internal Medicine; Visit Provider Nurse Practitioner Family
DX: K52.9 Noninfective gastroenteritis and colitis, unspecified (principal); N17.9 Acute kidney failure, unspecified; K86.2 Cyst of pancreas; E78.5 Hyperlipidemia, unspecified; E03.9 Hypothyroidism, unspecified; I10 Essential (primary) hypertension; Z86.73 Personal history of transient ischemic attack (TIA), and cerebral infarction without residual deficits; Z87.891 Personal history of nicotine dependence; Z79.02 Long term (current) use of antithrombotics/antiplatelets
CPT/HCPCS: 36415; 74177; 80053; 81003; 82607; 82746; 83540; 83550; 83605; 83690; 83735; 85025; 86140; 87040; 96361; 96365; 96375; 96376; 99285; A9270; J2270; J2405; J2543; J3480; J7030; J7040; Q9967